=== PATIENT | female | born 1945 | race Two or more races ===

== ENCOUNTER 2017-07-22 18:15 | Inpatient (IN) | payer MEDICARE, BC ==
[~2017-07-22] VITALS: Ht 154.9 cm; Wt 57.6 kg
[2017-07-22 20:00] VITALS: BP 131/64
--- NOTE | 2017-07-22 20:00 | NUR ---
RN NOTES RECEIVED PATIENT FROM [facility] VIA AMBULANCE ON A GURNEY ACCOMPANIED BY 2 EMT WITH FAMILY AT BEDSIDE. NO RESPIRATORY DISTRESS OR SHORTNESS OF BREATH. NOTED WITH PRODUCTIVE COUGH AND CONGESTION. ON 02 @2LPM VIA NASAL CANNULA TOLERATING WELL. ALERT AND ORIENTED. ABLE TO COMMUNICATE NEEDS VERBALLY. SEEN AND EVALUATED BY MD WITH NEW ORDERS NOTED AND MED RECON DONE. WITH IV SHUNT TO RIGHT ARM AND PIV LINE TO LAC. NO COMPLAINT OF PAIN OR DISCOMFORT. VITAL SIGNS WNL. WILL CONTINUE TO MONITOR. KEPT CLEAN AND DRY.
[2017-07-22] MEDS ORDERED: ALEN70TA45 PO (20:32)
[2017-07-22] MEDS ORDERED: MULT1TAB73 PO (20:32)
[2017-07-22] MEDS ORDERED: MAGN400T6 PO (20:32)
[2017-07-22] MEDS ORDERED: TACR1CAP PO (20:32)
[2017-07-22] MEDS ORDERED: PRAV20TA4 PO (20:32)
[2017-07-22] MEDS ORDERED: BIOT300T2 PO (20:32)
[2017-07-22] MEDS ORDERED: ASCO500C16 PO (20:32)
[2017-07-22] MEDS ORDERED: CALC-838 PO (20:32)
[2017-07-22] MEDS ORDERED: MYCO180T3 PO (20:32)
[2017-07-22] MEDS ORDERED: [UNRECOGNIZED DRUG - OTHER] PO (20:32)
[2017-07-22] MEDS ORDERED: PRED5TAB48 PO (20:32)
[2017-07-22] MEDS ORDERED: CINA30TA2 PO (20:32)
[2017-07-22] MEDS ORDERED: ONDANSETRON HCL/PF 4 MG/2 ML VIAL IVP PRN (23:00)
[2017-07-22] MEDS ORDERED: Z GUARD REMEDY 2 OZ OINT TP PRN (23:00)
[2017-07-22] MEDS ORDERED: MAGNESIUM HYDROXIDE 30 ML UDC PO PRN (23:00)
[2017-07-22] MEDS ORDERED: ACETAMINOPHEN 325 MG TABLET PO PRN (23:00)
[2017-07-22] MEDS ORDERED: IPRATROPIUM NEB FS 0.5 MG/2.5 ML AMPUL.NEB NEB PRN (23:00)
[2017-07-22] MEDS ORDERED: VANCOMYCIN 1 GM in IV D5W 250 ML IV SCH (23:00)
[2017-07-22] MEDS ORDERED: ALBUTEROL FS 2.5 MG/0.5 ML VIAL.NEB NEB PRN (23:00)
[2017-07-22] MEDS ORDERED: ZOLPIDEM TARTRATE 5 MG TABLET PO PRN (23:00)
[2017-07-22] MEDS ORDERED: ENOXAPARIN SODIUM 40 MG/0.4 ML DISP.SYRIN SQ SCH (23:00)
[2017-07-22] MEDS ORDERED: methylPREDNISolone SOD SUCC 125 MG/2ML VIAL ONE (23:18)
[2017-07-22] MEDS ORDERED: VANCOMYCIN 1 GM VIAL ONE (23:18)
[2017-07-22] MEDS ORDERED: ENOXAPARIN SODIUM 40 MG/0.4 ML DISP.SYRIN SQ ONE (23:18)
[2017-07-22] MEDS: IV NS 0.9% 1,000 ML IV PRN (23:34)
[2017-07-23] VITALS (7 sets, daily range): BP systolic 117–152; BP diastolic 57–79
[2017-07-23] MEDS: methylPREDNISolone SOD SUCC 125 MG/2ML VIAL IV SCH ×4 (00:06→17:13)
[2017-07-23] MEDS ORDERED: PIPERACILLIN /TAZOBACTAM 4.5 G in IV D5W 50 ML IV SCH (05:00)
[2017-07-23] MEDS ORDERED: methylPREDNISolone SOD SUCC 125 MG/2ML VIAL ONE (05:48)
[2017-07-23] MEDS ORDERED: PIPERACILLIN /TAZOBACTAM 2.25 G VIAL IV ONE (05:55)
--- NOTE | 2017-07-23 06:45 | NUR ---
RN CLOSING NOTES PATIENT IN BED, NO DISTRESS NOTED. NO SIGNIFICANT CHANGE OF CONDITION. VITAL SIGNS WNL. COLLECTED SPECIMEN FOR UA, MRSA SCREENING. WILL ENDORSE TO AM SHIFT FOR CONTINUITY OF CARE
[2017-07-23 06:56] LABS: HEMATOCRIT 37 % (33-45); HEMOGLOBIN 12.5 g/dL (11.5-14.8); LYMPHOCYTES # (AUTO) 0.2 /CMM (0.8-4.8); LYMPHOCYTES % (AUTO) 1.8 % (20.0-44.0); MEAN CORPUSCULAR HEMOGLOBIN 31 PG (26.0-33.0); MEAN CORPUSCULAR HGB CONC 34 g/dl (31.0-36.0); MEAN CORPUSCULAR VOLUME 91 fL (82-100); MONOCYTES # (AUTO) 0.2 /CMM (0.1-1.30); MONOCYTES % (AUTO) 1.6 % (2.0-12.0); NEUTROPHILS # (AUTO) 10.6 /CMM (1.8-8.9); NEUTROPHILS % (AUTO) 96.6 % (43.0-81.0); PLATELET COUNT (AUTO) 93 /CMM (150-450); RDW COEFFICIENT OF VARIATION 15.4 (11.5-15.0); RED BLOOD CELL COUNT(AUTO) 4.05 MIL/uL (4.0-5.2); WHITE BLOOD COUNT (AUTO) 10.9 K/uL (4.3-11.0)
[2017-07-23 07:20] LABS: CALCIUM, SERUM 9.7 mg/dL (8.5-10.1); CREATININE 0.7 mg/dL (0.6-1.3); MAGNESIUM 1.5 mg/dL (1.8-2.4); PHOSPHORUS 3.1 mg/dL (2.5-4.9); POTASSIUM 4.8 mmol/L (3.5-5.1); THYROID STIMULATING HORMONE 0.075 uIU/mL (0.358-3.74)
[2017-07-23] MEDS ORDERED: FEE PK DOSING 1 MIN EA MC ONE (07:29)
--- NOTE | 2017-07-23 08:00 | NUR ---
TELE1/RN AM SHIFT INITIAL NOTES RECEIVED AWAKE SITTING IN BED WITH AT BEDSIDE. A/O X 4, DENIES ANY SYMPTOMS AT THIS TIME. NO ACUTE CHANGE OF CONDITION NOTED AT THIS TIME. ON 2L VIA N/C SATURATING @ 97%, LUNG SOUNDS CLEAR, RESPIRATION EVEN & UNLABORED. ON TELE MONITORING WITH SINUS RHYTHM, HR 88. WITH ON GOING IV INFUSION OF NS @ 75CC/HR, IV SITE PATENT WITH NO S/S OF INFECTION. AV SHUNT ON LEFT ARM (+) THRILL & BRUIT. PT IS COMFORTABLE AT THIS TIME. SCHEDULED AM MEDS TO BE GIVEN. CL WITHIN REACHED, SAFETY MAINTAINED AND ISOLATION OBSERVED. ON GOING MONITORING.
[2017-07-23 08:39] LABS: LYMPHOCYTES % (MANUAL) 2 % (16-48); MONOCYTES % (MANUAL) 1 % (0-11.0); NEUTROPHILS % (MANUAL) 97 (42-76)
[2017-07-23] MEDS ORDERED: URSODIOL 300 MG CAPSULE PO SCH ×2 (09:00)
[2017-07-23] MEDS ORDERED: TACROLIMUS ANHYDROUS 1 MG CAPSULE PO SCH (09:00)
[2017-07-23] MEDS ORDERED: MYCOPHENOLATE SODIUM 180 MG TABLET.DR PO SCH (09:00)
--- NOTE | 2017-07-23 09:30 | NUR ---
TELE1/RN HOME MEDS - PHARMACY ENDORSED PT'S BROUGHT (2) KINDS OF HOME MEDS, MYFORTIC AND PROGRAFT. ENDORSED TO PHARMACY.
[2017-07-23] MEDS: TACROLIMUS ANHYDROUS 0.5 MG CAPSULE PO SCH ×2 (09:37→21:20)
[2017-07-23] MEDS: MYCOPHENOLATE SODIUM 180 MG TABLET.DR PO SCH ×2 (09:38→21:20)
[2017-07-23] MEDS: Magnesium 1GM/D5W 100ML PREMIX 100 ML IV SCH ×4 (10:35→17:13)
[2017-07-23] MEDS: VANCOMYCIN 500 MG in IV D5W 100 ML IV SCH ×2 (10:36→22:37)
--- NOTE | 2017-07-23 11:15 | NUR ---
TELE1/RN ROUNDS - DR. ROWE RELAYED TO DR. ROWE REGARDING ACTIGALL MEDICATION, PER PT'S PT IS NOT TAKING THE MEDICATION AT HOME. MD ORDERED FOR STAT LIVER FUNCTION TEST, DEPENDING ON RESULTS, TO DETERMINE WHETHER TO TAKE MEDICATION OR NOT. WILL RELAY RESULTS OF LIVER FUNCTION TEST TO DR. ROWE SOON IT BECOMES AVAILABLE. MONITORING CONTINUED.
[2017-07-23 11:33] LABS: ALBUMIN 2.3 g/dL (3.4-5.0); BILIRUBIN,DIRECT 0.6 mg/dL (0.0-0.2); BILIRUBIN,TOTAL 1.3 mg/dL (0.2-1.0)
[2017-07-23] MEDS: PIPERACILLIN /TAZOBACTAM 2.25 G in IV D5W 50 ML IV SCH ×2 (12:26→17:13)
[2017-07-23] MEDS ORDERED: TUBERCULIN,PURIF.PROT.DERIV. 5 TU/0.1 ML VIAL ID ONE (13:00)
--- NOTE | 2017-07-23 13:52 | NUR ---
TELE1/RN PPD TEST PPD TEST PERFORMED ON LEFT FOREARM, PT TOLERATED PROCEDURE. TO BE READ IN 48 HOURS.
--- NOTE | 2017-07-23 17:00 | NUR ---
TELE1/RN AFTERNOON ROUNDS NO CHANGE OF CONDITIONS. MONITORING CONTINUED.
--- NOTE | 2017-07-23 19:17 | NUR ---
TELE1/RN AM SHIFT END NOTES ALL NEEDS MET. NO ACUTE CHANGE OF CONDITION NOTED DURING THE SHIFT. PT ENDORSED TO PM NURSE TO CONTINUE CARE. CL WITHIN REACHED, SAFETY MAINTAINED AND ISOLATION OBSERVED.
--- NOTE | 2017-07-23 19:57 | NUR ---
LINOTYPE MECHANIC INITIAL NOTES RECEIVED AWAKE SITTING IN BED A/O X 4, DENIES ANY SYMPTOMS AT THIS TIME. NO ACUTE CHANGE OF CONDITION NOTED AT THIS TIME. ON 2L VIA N/C SATURATING @ 97%, LUNG SOUNDS CLEAR, RESPIRATION EVEN & UNLABORED. S/P TB TEST. ON TELE MONITORING WITH SINUS RHYTHM, HR 90. WITH ON GOING IV INFUSION OF NS @ 75CC/HR, IV SITE PATENT WITH NO S/S OF INFECTION. AV SHUNT ON LEFT ARM (+) THRILL & BRUIT. PT IS COMFORTABLE AT THIS TIME. SCHEDULED PM MEDS TO BE GIVEN. CL WITHIN REACHED, SAFETY MAINTAINED AND ISOLATION OBSERVED. ON GOING MONITORING.
--- NOTE | 2017-07-23 21:04 | NUR ---
Patient lives at home with spouse and son. Prior to admission, he was ambulatory and independent with adl's. He has a shower chair with back, no homehealth reported. Family will provide ride home once discharge. Addendum: 07/23/17 at 2104 by JOE ELIZONDO RN Amended: Links added.
[2017-07-23] MEDS: URSODIOL 300 MG CAPSULE PO SCH (21:20)
[2017-07-23] MEDS: CINACALCET HCL 30 MG TABLET PO SCH (21:25)
[2017-07-23] MEDS: ENOXAPARIN SODIUM 40 MG/0.4 ML DISP.SYRIN SQ SCH (21:48)
[2017-07-23] MEDS ORDERED: PRAVASTATIN SODIUM 20 MG TABLET PO SCH (22:00)
--- NOTE | 2017-07-23 22:20 | NUR ---
RECEIVED CALL FROM JESSENIA PIERCE FAXED POSITIVE BLOOD CX RESULTS.
[2017-07-23] MEDS: IV NS 0.9% 1,000 ML IV PRN (22:42)
[2017-07-24] VITALS (7 sets, daily range): BP systolic 120–144; BP diastolic 67–83
[2017-07-24] MEDS: methylPREDNISolone SOD SUCC 125 MG/2ML VIAL IV SCH ×5 (00:28→23:45)
[2017-07-24] MEDS: PIPERACILLIN /TAZOBACTAM 2.25 G in IV D5W 50 ML IV SCH ×4 (00:28→17:02)
--- NOTE | 2017-07-24 06:00 | NUR ---
MERCURY RECOVERER CLOSING NOTES ALL NEEDS MET. NO ACUTE CHANGE OF CONDITION NOTED DURING THE SHIFT. PT ENDORSED TO AM NURSE TO CONTINUE CARE. CL WITHIN REACHED, SAFETY MAINTAINED AND ISOLATION OBSERVED.
[2017-07-24 06:59] LABS: CALCIUM, SERUM 9.3 mg/dL (8.5-10.1); CREATININE 0.9 mg/dL (0.6-1.3); POTASSIUM 4.4 mmol/L (3.5-5.1)
--- NOTE | 2017-07-24 07:00 | NUR ---
RN NOTES RECEIVED ON BED, A/Ox4, RESPIRATION EVEN AND UNLABORED, NO SOB NOTED , ON 2 L O2 N/C, S/P TB TEST. ON TELE SR , NS @ 75CC/HR RUNNING VIA R AC IV , SITE CDI, AV SHUNT ON LEFT ARM (+) THRILL & BRUIT. CALL LIGHT WITHIN EASY REACH , SR UP x3. BED LOCKED AND IN LOWEST POSITION ,SAFETY MAINTAINED AND ISOLATION OBSERVED. CONTINUE TO MONITOR .
[2017-07-24] MEDS: URSODIOL 300 MG CAPSULE PO SCH ×2 (08:09→20:39)
[2017-07-24] MEDS: MYCOPHENOLATE SODIUM 180 MG TABLET.DR PO SCH ×2 (08:09→20:40)
[2017-07-24] MEDS: TACROLIMUS ANHYDROUS 0.5 MG CAPSULE PO SCH ×2 (08:09→20:40)
[2017-07-24] MEDS: VANCOMYCIN 500 MG in IV D5W 100 ML IV SCH ×2 (11:17→23:00)
--- NOTE | 2017-07-24 12:00 | NUR ---
RN NOTES PT STABLE , SUPPORTIVE FAMILY AT THE BEDSIDE , CONTINUE TO MONITOR
[2017-07-24] MEDS: IV NS 0.9% 1,000 ML IV PRN (17:06)
--- NOTE | 2017-07-24 18:23 | NUR ---
RN NOTES PT SITTING UP , RESPIRATION EVEN AND UNLBORED, R ARM PICC LINE SITE CDI, NO DISTRESS NOTED , CALL LIGHT WITHIN EASY REACH, WILL ENDORSE TO EYEGLASS FRAMES POLISHER NURSE FOR CATHERINE .
--- NOTE | 2017-07-24 19:54 | NUR ---
RN NOTES RECEIVED ON BED, A/Ox4, RESPIRATION EVEN AND UNLABORED, NO SOB NOTED , ON 2 L O2 N/C, S/P TB TEST. ON TELE SR , NS @ 75CC/HR RUNNING VIA R PICC IV , SITE CDI, AV SHUNT ON LEFT ARM (+) THRILL & BRUIT. CALL LIGHT WITHIN EASY REACH , SR UP x3. BED LOCKED AND IN LOWEST POSITION ,SAFETY MAINTAINED AND ISOLATION OBSERVED. CONTINUE TO MONITOR .
[2017-07-24] MEDS: HYDROCODONE/APAP 5/325MG 1 EACH TABLET PO PRN (20:40)
[2017-07-24] MEDS: ENOXAPARIN SODIUM 40 MG/0.4 ML DISP.SYRIN SQ SCH (21:00)
[2017-07-24] MEDS: CINACALCET HCL 30 MG TABLET PO SCH (21:00)
--- NOTE | 2017-07-24 21:02 | NUR ---
LOVENOX 40MG SQ HELD PLT 93L WILL CONT TO MONITOR, RISK AND BENEFIT EXPLAINED.
[2017-07-25] VITALS: BP 144/80
[2017-07-25] MEDS: PIPERACILLIN /TAZOBACTAM 2.25 G in IV D5W 50 ML IV SCH ×4 (00:40→17:10)
[2017-07-25] MEDS: methylPREDNISolone SOD SUCC 125 MG/2ML VIAL IV SCH ×3 (05:19→17:11)
--- NOTE | 2017-07-25 06:02 | NUR ---
HEADLINER INSTALLER CLOSING NOTES ALL NEEDS MET. NO ACUTE CHANGE OF CONDITION NOTED DURING THE SHIFT. PT ENDORSED TO AM NURSE TO CONTINUE CARE. CL WITHIN REACHED, SAFETY MAINTAINED AND ISOLATION OBSERVED. NASAL SWAB DONE, ID CONTACTED, LEFT A MESSAGE
[2017-07-25 06:34] LABS: HEMATOCRIT 34 % (33-45); HEMOGLOBIN 11.4 g/dL (11.5-14.8); LYMPHOCYTES # (AUTO) 0.1 /CMM (0.8-4.8); MEAN CORPUSCULAR HEMOGLOBIN 31 PG (26.0-33.0); MEAN CORPUSCULAR HGB CONC 33 g/dl (31.0-36.0); MEAN CORPUSCULAR VOLUME 92 fL (82-100); MONOCYTES # (AUTO) 0.2 /CMM (0.1-1.30); MONOCYTES % (AUTO) 1.6 % (2.0-12.0); NEUTROPHILS # (AUTO) 11.9 /CMM (1.8-8.9); NEUTROPHILS % (AUTO) 97.4 % (43.0-81.0); PLATELET COUNT (AUTO) 106 /CMM (150-450); RED BLOOD CELL COUNT(AUTO) 3.72 MIL/uL (4.0-5.2); WHITE BLOOD COUNT (AUTO) 12.2 K/uL (4.3-11.0)
[2017-07-25 06:50] LABS: ALBUMIN 1.9 g/dL (3.4-5.0); BILIRUBIN,TOTAL 0.6 mg/dL (0.2-1.0); CALCIUM, SERUM 8.7 mg/dL (8.5-10.1); MAGNESIUM 1.5 mg/dL (1.8-2.4); PHOSPHORUS 3.8 mg/dL (2.5-4.9); POTASSIUM 4.5 mmol/L (3.5-5.1); TOTAL PROTEIN, SERUM 5.1 g/dL (6.4-8.2)
--- NOTE | 2017-07-25 07:00 | NUR ---
RN NOTES RECEIVED PT ON BED, A/Ox4, RESPIRATION EVEN AND UNLABORED, ON 2 L O2 N/C, NS @ 75CC/HR RUNNING VIA R PICC IV , SITE CDI, AV SHUNT ON LEFT ARM (+) THRILL & BRUIT. SR UP x3. CALL LIGHT WITHIN EASY REACH, BED LOCKED AND IN LOWEST POSITION ,SAFETY MAINTAINED AND ISOLATION OBSERVED. CONTINUE TO MONITOR.
[2017-07-25 08:00] VITALS: BP 138/71
[2017-07-25 09:39] LABS: THYROID STIMULATING HORMONE 0.031 uIU/mL (0.358-3.74)
[2017-07-25] MEDS: TACROLIMUS ANHYDROUS 0.5 MG CAPSULE PO SCH ×2 (10:02→21:21)
[2017-07-25] MEDS: URSODIOL 300 MG CAPSULE PO SCH ×2 (10:02→21:21)
[2017-07-25] MEDS: MYCOPHENOLATE SODIUM 180 MG TABLET.DR PO SCH ×2 (10:02→21:20)
[2017-07-25] MEDS: Magnesium 1GM/D5W 100ML PREMIX 100 ML IV SCH ×2 (10:05→12:11)
[2017-07-25] MEDS: IV NS 0.9% 1,000 ML IV PRN (10:07)
[2017-07-25] MEDS: VANCOMYCIN 500 MG in IV D5W 100 ML IV SCH (11:19)
[2017-07-25] MEDS ORDERED: GUAIFENESIN/CODEINE 10 ML UDC PO PRN (11:30)
--- NOTE | 2017-07-25 13:51 | NUR ---
RN NOTES 7mm DIAMETER NOTED AT THE PPD INJECTION SITE ON L UPPER ARM , WITH SLIGHT REDNESS .
[2017-07-25 16:00] VITALS: BP 147/80
--- NOTE | 2017-07-25 18:24 | NUR ---
RN NOTES PT SITTING UP ON A CHAIR EATING DINNER , SUPPORTIVE FAMILY AT THE BEDSIDE, NS AT 75CC/HR RUNNING VIA R ARM PICC LINE , WILL ENDORSE TO FOOD PHOTOGRAPHER NURSE FOR CATHERINE.
[2017-07-25 20:00] VITALS: BP 147/93
--- NOTE | 2017-07-25 20:14 | NUR ---
RN MS INITIAL NOTES RECEIVED PT ON BED, A/Ox4, RESPIRATION EVEN AND UNLABORED, ON 2 L O2 N/C, NS @ 75CC/HR RUNNING VIA R PICC IV , SITE INTACT, AV SHUNT ON LEFT ARM (+) THRILL & BRUIT. SR UP x3. CALL LIGHT WITHIN EASY REACH, BED LOCKED AND IN LOWEST POSITION ,SAFETY MAINTAINED AND ISOLATION OBSERVED. CONTINUE TO MONITOR.
[2017-07-25] MEDS: ENOXAPARIN SODIUM 40 MG/0.4 ML DISP.SYRIN SQ SCH (21:00)
[2017-07-25] MEDS: ATORVASTATIN 10 MG TABLET PO SCH (21:20)
[2017-07-25] MEDS: CINACALCET HCL 30 MG TABLET PO SCH (21:21)
--- NOTE | 2017-07-25 21:37 | NUR ---
LOVENOX 40 MG SQ HELD PLT 106L, RISK EXPLAINED TO PT, WILL ENDORSE TO AM NURSE TO F/U.
[2017-07-26 00:42] VITALS: BP 147/93
[2017-07-26] MEDS: methylPREDNISolone SOD SUCC 125 MG/2ML VIAL IV SCH ×5 (01:28→23:01)
[2017-07-26] MEDS: VANCOMYCIN 500 MG in IV D5W 100 ML IV SCH ×3 (01:28→22:04)
[2017-07-26] MEDS: PIPERACILLIN /TAZOBACTAM 2.25 G in IV D5W 50 ML IV SCH ×2 (01:29→05:11)
[2017-07-26 04:00] VITALS: BP 153/79
[2017-07-26] MEDS: IV NS 0.9% 1,000 ML IV PRN (05:24)
--- NOTE | 2017-07-26 06:25 | NUR ---
FABRIC NORMALIZER CLOSING NOTES ALL NEEDS MET. NO ACUTE CHANGE OF CONDITION NOTED DURING THE SHIFT. PT ENDORSED TO AM NURSE TO CONTINUE CARE. CL WITHIN REACHED, SAFETY MAINTAINED AND ISOLATION OBSERVED. NASAL SWAB DONE, ID CONTACTED, LEFT A MESSAGE
[2017-07-26 06:31] LABS: HEMATOCRIT 35 % (33-45); HEMOGLOBIN 11.6 g/dL (11.5-14.8); LYMPHOCYTES # (AUTO) 0.1 /CMM (0.8-4.8); LYMPHOCYTES % (AUTO) 1.4 % (20.0-44.0); MEAN CORPUSCULAR HEMOGLOBIN 30 PG (26.0-33.0); MEAN CORPUSCULAR HGB CONC 33 g/dl (31.0-36.0); MEAN CORPUSCULAR VOLUME 92 fL (82-100); MONOCYTES # (AUTO) 0.2 /CMM (0.1-1.30); MONOCYTES % (AUTO) 1.9 % (2.0-12.0); NEUTROPHILS # (AUTO) 8.9 /CMM (1.8-8.9); NEUTROPHILS % (AUTO) 96.7 % (43.0-81.0); PLATELET COUNT (AUTO) 89 /CMM (150-450); RDW COEFFICIENT OF VARIATION 14.8 (11.5-15.0); RED BLOOD CELL COUNT(AUTO) 3.84 MIL/uL (4.0-5.2); WHITE BLOOD COUNT (AUTO) 9.2 K/uL (4.3-11.0)
[2017-07-26 06:48] LABS: CALCIUM, SERUM 8.8 mg/dL (8.5-10.1); CREATININE 0.8 mg/dL (0.6-1.3); MAGNESIUM 1.7 mg/dL (1.8-2.4); PHOSPHORUS 3.7 mg/dL (2.5-4.9); POTASSIUM 4.4 mmol/L (3.5-5.1)
--- NOTE | 2017-07-26 07:37 | NUR ---
RN: INITIAL NOTE RECEIVED PT A/OX4. ON DROPLET AND CONTACT PRECAUTIONS FOR POSSIBLE TB. USES DIAPER. ON MS. SKIN INTACT. ON SOFT DIET. NO DISTRESS NOTED. NO SOB NOTED. NO PAIN NOTED. ON 2L NC SATING AT 95%. ON SOFT DIET L FA SHUNT + FOR BRUIT. R ARM PICC LINE. SITE CELAR AND PATENT. DRESSING INTACT. RUNNING NS AT 75ML/HR. RESTING COMFORTABLY IN BED. CALL LIGHT WITHIN REACH.
[2017-07-26 07:43] LABS: BAND % (MANUAL) 1 % (0.0-5.0); LYMPHOCYTES % (MANUAL) 2 % (16-48); MONOCYTES % (MANUAL) 1 % (0-11.0); NEUTROPHILS % (MANUAL) 96 (42-76)
[2017-07-26 08:00] VITALS: BP_SYST 154; BP_SYST 157; BP_DIAS 65; BP_DIAS 80
[2017-07-26] MEDS: MYCOPHENOLATE SODIUM 180 MG TABLET.DR PO SCH ×2 (09:01→20:13)
[2017-07-26] MEDS: TACROLIMUS ANHYDROUS 0.5 MG CAPSULE PO SCH ×2 (09:02→20:12)
[2017-07-26] MEDS: URSODIOL 300 MG CAPSULE PO SCH ×2 (09:02→20:13)
[2017-07-26] MEDS: SIMETHICONE 80 MG TAB.CHEW PO PRN ×2 (12:15→20:13)
[2017-07-26] MEDS: PIPERACILLIN /TAZOBACTAM 3.375 G in IV D5W 50 ML IV SCH ×3 (12:15→23:36)
[2017-07-26] MEDS: Magnesium 1GM/D5W 100ML PREMIX 100 ML IV SCH ×2 (12:45→14:05)
[2017-07-26 13:07] LABS: *TACROLIMUS (FK506) 8.4 ng/mL (2.0-20.0)
[2017-07-26 16:00] VITALS: BP 146/80
--- NOTE | 2017-07-26 18:45 | NUR ---
MS RN: CLOSING NOTE PT TOOK ALL MEDICATIONS ON TIME. NO ADVERSE REACTIONS NOTED. ON DROPLET AND CONTACT PRECAUTIONS DUE TO POSSIBLE TB. A/OX4. NO DISTRESS NOTED. NO SOB NOTED. ON 4L NC SATING AT 100%. STOOL COLLECTED AND SENT FOR C.DIFF PER MD ORDER,. SKIN INTACT. ON SOFT DIET. NO N/V NOTED. R ARM PICC LINE. SL. NO IV FLUIDS RUNNING. DRESSING INTACT. LFA SHUNT + BRUIT. DRESSING INTACT. RESTING COMFORTABLY IN BED. CALL LIGHT WITHIN REACH.
--- NOTE | 2017-07-26 19:00 | NUR ---
MS RN OPENING NOTES: RECEIVED PT AND IS SITTING UP ON CHAIR WITH 3LPM VIA NC AND IS TOLERATING WELL. PT WITH 2 FAMILY MEMBERS AT BEDSIDE. TB PRECAUTIONS WERE MADE. PT COMPLAINING OF GAS AT THIS TIME. WOULD LIKE SOMETHING FOR HER GAS. PT HAS PICC LINE ON R UPPER ARM AND IS PATENT AND INTACT. CURRENTLY S/L. PT ALSO HAS LEFT FOREARM SHUNT NOTED WITH BRUIT NOTED. CALL LIGHT WITHIN PT'S REACH. BED KEPT IN LOW, LOCKED POSITION, AND SIDE RAILS X 2UP. WILL CONTINUE TO MONITOR PT.
[2017-07-26 20:00] VITALS: BP 173/107
--- NOTE | 2017-07-26 20:13 | NUR ---
MS RN NOTES: PT IS COMPLAINING OF GAS AND WAS ADMINISTERED MYLICON 80MG. WILL CONTINUE TO MONITOR PT.
[2017-07-26] MEDS: ENOXAPARIN SODIUM 40 MG/0.4 ML DISP.SYRIN SQ SCH ×2 (21:00→22:59)
--- NOTE | 2017-07-26 21:00 | NUR ---
MS COPE NOTES: LOVENOX WITHHELD D/T PLATELETS BEING 89. CHARGE NURSE AWARE. Addendum: 07/27/17 at 0340 by BRANDI CALLE RN LOVENOX ENDED UP BEING ADMINISTERED AFTER SPEAKING WITH DR. JOON Padilla
[2017-07-26] MEDS: ATORVASTATIN 10 MG TABLET PO SCH (22:00)
[2017-07-26] MEDS: CINACALCET HCL 30 MG TABLET PO SCH (22:00)
[2017-07-26 22:16] VITALS: BP 171/77
--- NOTE | 2017-07-26 22:20 | NUR ---
MS RN NOTES: PT REFUSED LIPITOR AND SENSIPAR AFTER BEING EXPLAINED RISKS AND BENEFITS OF MEDS X3. PT STILL DOES NOT WANT TO TAKE IT.
--- NOTE | 2017-07-26 22:22 | NUR ---
MS RN NOTES: PT SAID SHE FEELS A LOT BETTER AFTER TAKING MYLICON 80MG EARLIER. PT NOT COMPLAINING OF ANY PAIN. NO S/S OF DISTRESS NOTED. BP 171/77 HR 80. WILL CONTINUE TO MONITOR PT.
--- NOTE | 2017-07-26 22:45 | NUR ---
MS RN NOTES: SPOKE TO DR. DUPREE AND INFORMED HIM OF BP 171/77 HR 80. NO ORDERS WERE GIVEN IN REGARDS TO BP. ALSO INFORMED HIM OF HER PLATELETS BEING 89 AND TO STILL ADMINISTER THE LOVENOX 40MG.
[2017-07-27 04:00] VITALS: BP 158/76
[2017-07-27] MEDS: methylPREDNISolone SOD SUCC 125 MG/2ML VIAL IV SCH ×4 (05:38→23:35)
[2017-07-27] MEDS: PIPERACILLIN /TAZOBACTAM 3.375 G in IV D5W 50 ML IV SCH ×4 (05:38→23:35)
--- NOTE | 2017-07-27 06:54 | NUR ---
MS RN CLOSING NOTES: ALL NEEDS WERE ATTENDED AND ANTICIPATED FOR. PT IS RESTING IN BED COMFORTABLY. PT IS AWAKE AND IS A/OX4. TB PRECAUTIONS WERE MADE. PT HAS PICC LINE ON R UPPER ARM AND IS PATENT AND INTACT. CURRENTLY S/L. PT ALSO HAS LEFT FOREARM SHUNT NOTED WITH BRUIT. CALL LIGHT WITHIN PT'S REACH. PT ON 3LPM VIA NC AND IS TOLERATING WELL. BED KEPT IN LOW, LOCKED POSITION, AND SIDE RAILS X 2UP. WILL ENDORSE TO AM NURSE FOR CATHERINE.
--- NOTE | 2017-07-27 07:24 | NUR ---
RN OPENING NOTES PATIENT RESTING COMFORTABLY IN BED, AWAKE, RESPONSIVE, A/OX4. TB PRECAUTIONS WERE MADE. PATIENT HAS PICC LINE ON R UPPER ARM AND IS PATENT AND INTACT. PATIENT ALSO HAS LEFT FOREARM SHUNT NOTED WITH BRUIT. KEPT PATIENT SAFE AND COMFORTABLE. ON 3LPM VIA NC AND IS TOLERATING WELL. BED IN LOW, LOCKED POSITION, HOB ELEVATED, SIDE RAILS X 2UP, CALL LIGHT WITHIN REACH. WILL CONTINUE TO MONITOR ACCORDINGLY.
[2017-07-27 07:25] LABS: CALCIUM, SERUM 9.2 mg/dL (8.5-10.1); CREATININE 0.9 mg/dL (0.6-1.3); MAGNESIUM 1.9 mg/dL (1.8-2.4); PHOSPHORUS 4.1 mg/dL (2.5-4.9); POTASSIUM 4.4 mmol/L (3.5-5.1)
[2017-07-27 07:27] LABS: HEMATOCRIT 37 % (33-45); HEMOGLOBIN 12.2 g/dL (11.5-14.8); LYMPHOCYTES # (AUTO) 0.1 /CMM (0.8-4.8); LYMPHOCYTES % (AUTO) 1.4 % (20.0-44.0); MEAN CORPUSCULAR HEMOGLOBIN 30 PG (26.0-33.0); MEAN CORPUSCULAR HGB CONC 33 g/dl (31.0-36.0); MEAN CORPUSCULAR VOLUME 92 fL (82-100); MONOCYTES # (AUTO) 0.1 /CMM (0.1-1.30); MONOCYTES % (AUTO) 1.9 % (2.0-12.0); NEUTROPHILS # (AUTO) 6.9 /CMM (1.8-8.9); NEUTROPHILS % (AUTO) 96.7 % (43.0-81.0); PLATELET COUNT (AUTO) 91 /CMM (150-450); RED BLOOD CELL COUNT(AUTO) 4.02 MIL/uL (4.0-5.2); WHITE BLOOD COUNT (AUTO) 7.2 K/uL (4.3-11.0)
[2017-07-27 08:00] VITALS: BP_SYST 155; BP_SYST 166; BP_DIAS 77; BP_DIAS 78
[2017-07-27] MEDS: URSODIOL 300 MG CAPSULE PO SCH ×2 (08:25→21:07)
[2017-07-27] MEDS: MYCOPHENOLATE SODIUM 180 MG TABLET.DR PO SCH ×2 (08:26→21:07)
[2017-07-27] MEDS: TACROLIMUS ANHYDROUS 0.5 MG CAPSULE PO SCH ×2 (08:26→21:07)
[2017-07-27] MEDS: VANCOMYCIN 500 MG in IV D5W 100 ML IV SCH ×2 (12:09→23:35)
[2017-07-27] MEDS: PROSOURCE / PROSTAT (PYXIS) 30 ML UDC PO SCH (13:36)
[2017-07-27] MEDS: SIMETHICONE 80 MG TAB.CHEW PO PRN (14:29)
[2017-07-27 16:00] VITALS: BP_SYST 150; BP_SYST 175; BP_DIAS 83; BP_DIAS 86
--- NOTE | 2017-07-27 19:30 | NUR ---
RN CLOSING NOTES PATIENT IN BED RESTING, ON BEDSIDE. NO ACUTE DISTRESS, NO SOB NOTED. NO SIGNIFICANT CHANGE IN PATIENT'S CONDITION. ALL NEEDS ATTENDED AND PROVIDED. KEPT PATIENT SAFE AND COMFORTABLE. BED IN LOW POSITION, LOCKED, SIDERAILS UPX2, HOB ELEVATED, CALL LIGHT IN REACH. ENDORSED TO NIGHT RN FOR CATHERINE.
[2017-07-27 20:00] VITALS: BP 167/89
[2017-07-27] MEDS: ENOXAPARIN SODIUM 40 MG/0.4 ML DISP.SYRIN SQ SCH (21:00)
[2017-07-27] MEDS: ATORVASTATIN 10 MG TABLET PO SCH (21:07)
[2017-07-27] MEDS: CINACALCET HCL 30 MG TABLET PO SCH (21:11)
[2017-07-28 04:00] VITALS: BP 155/72
[2017-07-28] MEDS: PIPERACILLIN /TAZOBACTAM 3.375 G in IV D5W 50 ML IV SCH ×4 (05:50→17:30)
[2017-07-28] MEDS: methylPREDNISolone SOD SUCC 125 MG/2ML VIAL IV SCH ×4 (05:50→17:29)
--- NOTE | 2017-07-28 05:58 | NUR ---
RN NOTES COMPUTER SHUT OFF WHILE PASSING MEDS. 0600 MEDS MANUALLY SCANNED.
--- NOTE | 2017-07-28 07:22 | NUR ---
RN NOTES RECEIVED PT IN STABLE CONDITION A&0X3, ON 2L NC SATING WELL NO SOB OR DISTRESS NOTED. ADELA PICC LINE INTACT NO IVF. NO COMPLAINTS OF PAIN AT THS TIME. BED LOCKED AND IN LOWEST POSITION, CALL LIGHT WITHIN REACH, SIDE RAILS UX3, WILL CONT TO RAFFI.
[2017-07-28 07:28] LABS: CALCIUM, SERUM 8.7 mg/dL (8.5-10.1); MAGNESIUM 1.7 mg/dL (1.8-2.4); PHOSPHORUS 4.2 mg/dL (2.5-4.9); POTASSIUM 4.5 mmol/L (3.5-5.1)
[2017-07-28 07:47] LABS: EOSINOPHILS % (AUTO) 0.4 % (0.0-6.0); HEMATOCRIT 35 % (33-45); HEMOGLOBIN 11.8 g/dL (11.5-14.8); LYMPHOCYTES # (AUTO) 0.1 /CMM (0.8-4.8); MEAN CORPUSCULAR HEMOGLOBIN 31 PG (26.0-33.0); MEAN CORPUSCULAR HGB CONC 34 g/dl (31.0-36.0); MEAN CORPUSCULAR VOLUME 91 fL (82-100); MONOCYTES # (AUTO) 0.1 /CMM (0.1-1.30); MONOCYTES % (AUTO) 1.9 % (2.0-12.0); NEUTROPHILS # (AUTO) 6.5 /CMM (1.8-8.9); NEUTROPHILS % (AUTO) 95.7 % (43.0-81.0); RDW COEFFICIENT OF VARIATION 15.2 (11.5-15.0); RED BLOOD CELL COUNT(AUTO) 3.83 MIL/uL (4.0-5.2); WHITE BLOOD COUNT (AUTO) 6.8 K/uL (4.3-11.0)
[2017-07-28 08:00] VITALS: BP 160/79
[2017-07-28 08:08] LABS: PLATELET COUNT (AUTO) 88 /CMM (150-450)
[2017-07-28] MEDS: PROSOURCE / PROSTAT (PYXIS) 30 ML UDC PO SCH (08:50)
[2017-07-28] MEDS: MYCOPHENOLATE SODIUM 180 MG TABLET.DR PO SCH ×2 (08:50→21:15)
[2017-07-28] MEDS: TACROLIMUS ANHYDROUS 0.5 MG CAPSULE PO SCH ×2 (08:50→21:14)
[2017-07-28] MEDS: URSODIOL 300 MG CAPSULE PO SCH ×2 (08:50→21:15)
[2017-07-28] MEDS: Magnesium 1GM/D5W 100ML PREMIX 100 ML IV SCH ×2 (11:15→12:40)
[2017-07-28 13:30] VITALS: BP 160/79
[2017-07-28] MEDS: VANCOMYCIN 500 MG in IV D5W 100 ML IV SCH (13:30)
--- NOTE | 2017-07-28 13:30 | NUR ---
RN NOTES FULL FASHIONED GARMENT KNITTER CLEANING PT NOTICED BRIGHT RED RECTAL BLEEDING. PER PT AND PT HAS HEMORRHOIDS AND THIS HAS HAPPENED IN THE PAST. PT VITALS STABLE BP 160/79. PARTS CLASSIFIER LENNOX HICKEY INFORMED, GI CONSULT WILL BE DONE. WILL CONT TO RAFFI.
[2017-07-28 16:00] VITALS: BP 171/83
[2017-07-28 17:13] LABS: BASOPHILS # (AUTO) 0.1 /CMM (0.0-0.2); BASOPHILS % (AUTO) 0.7 % (0.0-2.0); HEMATOCRIT 37 % (33-45); HEMOGLOBIN 12.4 g/dL (11.5-14.8); LYMPHOCYTES # (AUTO) 0.2 /CMM (0.8-4.8); LYMPHOCYTES % (AUTO) 1.5 % (20.0-44.0); MEAN CORPUSCULAR HEMOGLOBIN 31 PG (26.0-33.0); MEAN CORPUSCULAR HGB CONC 34 g/dl (31.0-36.0); MEAN CORPUSCULAR VOLUME 90 fL (82-100); MONOCYTES # (AUTO) 0.4 /CMM (0.1-1.30); MONOCYTES % (AUTO) 3.6 % (2.0-12.0); NEUTROPHILS # (AUTO) 11.2 /CMM (1.8-8.9); NEUTROPHILS % (AUTO) 94.2 % (43.0-81.0); PLATELET COUNT (AUTO) 108 /CMM (150-450); RDW COEFFICIENT OF VARIATION 15.2 (11.5-15.0); RED BLOOD CELL COUNT(AUTO) 4.09 MIL/uL (4.0-5.2); WHITE BLOOD COUNT (AUTO) 11.9 K/uL (4.3-11.0)
--- NOTE | 2017-07-28 17:47 | NUR ---
RN NOTES COLONOSCOPY ORDERED BY CHUCKY GARIBAY, PT REFUSES TO HAVE ANOTHER COLONOSCOPY, STATES SHE RECENTLY HAD ONE AND IT WAS NORMAL. PT WANTS TO GO HOME TOMORROW.
--- NOTE | 2017-07-28 18:35 | NUR ---
RN NOTES PT REMAINED IN STABLE CONDITION, NO SIGNIFICANT CHANGES. PT H&H REDRAW 12.4 AND 37. PT HAD ONE MORE EPISODE OF RECTAL BLEED. PER COPIER OPERATOR CONTINUE TO RAFFI. ALL NEEDS MET. NO COMPLAINTS OF PAIN AT THIS TIME. COPIER OPERATOR [place] NOTIFIED THAT PT IS REFUSING COLONOSCOPY. WILL ENDORSE TO ONCOMING SHIFT.
[2017-07-28 20:00] VITALS: BP 160/75
[2017-07-28] MEDS: ENOXAPARIN SODIUM 40 MG/0.4 ML DISP.SYRIN SQ SCH (21:00)
[2017-07-28] MEDS: CINACALCET HCL 30 MG TABLET PO SCH (21:14)
[2017-07-28] MEDS: ATORVASTATIN 10 MG TABLET PO SCH (21:15)
--- NOTE | 2017-07-28 22:00 | NUR ---
RN NOTES, LOVENOX NOT ADMINISTERED, PATIENT WITH SOME EPISODES OF RECTAL BLEEDING YESTERDAY PER ENDORSEMENT , SMALL AMOUNT OF BLEEDING NOTED DURING THE SHIFT, PATIENT ALERT AND ORIENTED, BREATHING EVEN AND UNLABORED NO SOB OR ACUTE DISTRESS NOTED AT THIS TIME, WILL CONTINUE TO MONITOR CLOSELY.
[2017-07-28] MEDS: HYDROCODONE/APAP 5/325MG 1 EACH TABLET PO PRN (22:18)
[2017-07-28] MEDS ORDERED: methylPREDNISolone SOD SUCC 40 MG/ML VIAL ONE (23:37)
[2017-07-29] MEDS: PIPERACILLIN /TAZOBACTAM 3.375 G in IV D5W 50 ML IV SCH ×4 (00:11→18:19)
[2017-07-29] MEDS: methylPREDNISolone SOD SUCC 125 MG/2ML VIAL IV SCH ×4 (00:11→18:19)
[2017-07-29 04:00] VITALS: BP 148/72
[2017-07-29] MEDS ORDERED: methylPREDNISolone SOD SUCC 40 MG/ML VIAL ONE (06:30)
[2017-07-29 06:33] LABS: CALCIUM, SERUM 8.3 mg/dL (8.5-10.1); CREATININE 1.2 mg/dL (0.6-1.3); MAGNESIUM 1.9 mg/dL (1.8-2.4); POTASSIUM 4.6 mmol/L (3.5-5.1)
[2017-07-29] MEDS: MAG HYDROX/AL HYDROX/SIMETH 30 ML UDC PO PRN (06:33)
[2017-07-29] MEDS: VANCOMYCIN 500 MG in IV D5W 100 ML IV SCH (07:21)
--- NOTE | 2017-07-29 08:08 | NUR ---
MS/RN NOTES RECEIVED PATIENT RESTING IN BED IN NO APPARENT DISTRESS, BREATHING EVEN AND UNLABORED, ON 02 VIA NC AT 2LPM ABOVE 91%. PATIENT DENIES ANY PAIN OR DISCOMFORT AT THIS TIME. RIGHT UPPER ARM PICC LINE AND LEFT UA AV SHUNT, NO DIALYSIS. PATIENT APPEARS STABLE AT THIS TIME, WILL CONTINUE TO MONITOR.
[2017-07-29 08:10] LABS: IMMUNOGLOBULIN A, SERUM 110 mg/dL (87-352); IMMUNOGLOBULIN G, SERUM 773 mg/dL (700-1600); IMMUNOGLOBULIN M, SERUM 44 mg/dL (26-217)
[2017-07-29] MEDS: PROSOURCE / PROSTAT (PYXIS) 30 ML UDC PO SCH (09:00)
[2017-07-29] MEDS: MYCOPHENOLATE SODIUM 180 MG TABLET.DR PO SCH ×2 (09:46→21:19)
[2017-07-29] MEDS: URSODIOL 300 MG CAPSULE PO SCH ×2 (09:46→21:19)
[2017-07-29] MEDS: TACROLIMUS ANHYDROUS 0.5 MG CAPSULE PO SCH ×2 (09:47→21:19)
--- NOTE | 2017-07-29 12:36 | NUR ---
MS/RN NOTES PATIENT RESTING IN BED COMFORTABLY, NO S/S OF DISTRESS OR DISCOMFORT NOTED. MORNING MEDICATIONS GIVEN, IV ANTIBIOTIC INFUSING. SEEN BY CONTOUR GRINDER PELEG. WILL CONTINUE TO MONITOR
[2017-07-29 16:12] LABS: *HIV-1 RNA BY PCR <20 copies/mL (.)
[2017-07-29 18:07] VITALS: BP 150/70
--- NOTE | 2017-07-29 19:15 | NUR ---
MS/RN NOTES RECEIVED PT. LYING IN BED, AWAKE, ALERT AND ORIENTED X4. BREATHING EVEN AND UNLABORED ON 2LPM O2 VIA NC. NO SOB, RESPIRATORY DISTRESS OR COMPLAINTS OF PAIN NOTED AT THIS TIME. PT. WITH RIGHT UPPER ARM PICC LINE PRESENT, PATENT AND INTACT. PT. WITH LEFT UPPER EXTREMITY AV SHUNT PRESENT AND INTACT. PT. WITH FAMILY MEMBER PRESENT AT BEDSIDE. BED LOCKED AND IN LOWEST POSITION, SIDE RAILS UP X2, BED ALARM ON, CALL LIGHT WITHIN REACH, WILL CONTINUE TO MONITOR.
--- NOTE | 2017-07-29 19:38 | NUR ---
MS/RN NOTES PATIENT RESTING IN BED COMFORTABLY, ALL DUE MEDICATIONS GIVEN, ALL NEEDS MET AND ATTENDED. PATIENT STABLE, VITALS WITHIN NORMAL LIMITS. NO SIGNIFICANT CHANGES NOTED. SAFETY MEASURES RENDERED, CALL LIGHT PLACED WITHIN REACH. WILL ENDORSE CARE TO MUD TEMPERER FOR CATHERINE.
[2017-07-29 20:00] VITALS: BP 151/98
[2017-07-29] MEDS: ENOXAPARIN SODIUM 40 MG/0.4 ML DISP.SYRIN SQ SCH (21:00)
[2017-07-29] MEDS: CINACALCET HCL 30 MG TABLET PO SCH (21:19)
[2017-07-29] MEDS: ATORVASTATIN 10 MG TABLET PO SCH (21:19)
--- NOTE | 2017-07-29 21:20 | NUR ---
MS/RN NOTES PT. 2100 LOVENOX HELD SMALL AMOUNT OF RECTAL BLEEDING NOTED UPON DIAPER CHANGE. WILL CONTINUE TO MONITOR FOR BLEEDING. WILL CONTINUE TO MONITOR.
[2017-07-30] MEDS: methylPREDNISolone SOD SUCC 125 MG/2ML VIAL IV SCH ×3 (00:34→12:00)
[2017-07-30] MEDS: PIPERACILLIN /TAZOBACTAM 3.375 G in IV D5W 50 ML IV SCH ×3 (00:34→11:58)
[2017-07-30] MEDS: VANCOMYCIN 500 MG in IV D5W 100 ML IV SCH (01:59)
[2017-07-30 04:00] VITALS: BP 140/61
[2017-07-30] MEDS: MAG HYDROX/AL HYDROX/SIMETH 30 ML UDC PO PRN (05:58)
--- NOTE | 2017-07-30 06:57 | NUR ---
MS/RN NOTES PT. IS LYING IN BED RESTING. BREATHING EVEN AND UNLABORED ON 2LPM O2 VIA NC. NO SOB, RESPIRATORY DISTRESS OR COMPLAINTS OF PAIN NOTED AT THIS TIME. PT. WITH RIGHT UPPER ARM PICC LINE PRESENT, PATENT AND INTACT. PT. WITH LEFT UPPER EXTREMITY AV SHUNT PRESENT AND INTACT. ALL PT. NEEDS MET. ALL DUE MEDICATIONS GIVEN. BED LOCKED AND IN LOWEST POSITION, SIDE RAILS UP X2, BED ALARM ON, CALL LIGHT WITHIN REACH, WILL ENDORSE TO DAYSHIFT NURSE FOR CONTINUITY OF CARE.
[2017-07-30 07:02] LABS: HEMATOCRIT 34 % (33-45); HEMOGLOBIN 11.4 g/dL (11.5-14.8); LYMPHOCYTES # (AUTO) 0.1 /CMM (0.8-4.8); LYMPHOCYTES % (AUTO) 1.3 % (20.0-44.0); MEAN CORPUSCULAR HEMOGLOBIN 31 PG (26.0-33.0); MEAN CORPUSCULAR HGB CONC 34 g/dl (31.0-36.0); MEAN CORPUSCULAR VOLUME 91 fL (82-100); MONOCYTES # (AUTO) 0.1 /CMM (0.1-1.30); MONOCYTES % (AUTO) 0.9 % (2.0-12.0); NEUTROPHILS # (AUTO) 7.7 /CMM (1.8-8.9); NEUTROPHILS % (AUTO) 97.8 % (43.0-81.0); PLATELET COUNT (AUTO) 80 /CMM (150-450); RED BLOOD CELL COUNT(AUTO) 3.69 MIL/uL (4.0-5.2); WHITE BLOOD COUNT (AUTO) 7.9 K/uL (4.3-11.0)
[2017-07-30 07:14] LABS: CALCIUM, SERUM 8.4 mg/dL (8.5-10.1); CREATININE 1.1 mg/dL (0.6-1.3); MAGNESIUM 1.8 mg/dL (1.8-2.4); PHOSPHORUS 3.9 mg/dL (2.5-4.9); POTASSIUM 4.5 mmol/L (3.5-5.1)
--- NOTE | 2017-07-30 07:49 | NUR ---
RN NOTES PATIENT ASLEEP BUT EASILY AROUSABLE, NO RESPIRATORY DISTRESS NOTED, DENIES PAIN AT THIS TIME, NEEDS ATTENDED, KEPT PATIENT COMFORTABLE, CALL LIGHT WITHIN REACH, WILL CONTINUE TO MONITOR.
[2017-07-30 08:00] VITALS: BP 132/62
[2017-07-30 08:09] LABS: *SPE ALBUMIN 2.2 g/dL (2.9-4.4); *SPE ALPHA-1-GLOBULIN 0.3 g/dL (0.0-0.4); *SPE ALPHA-2-GLOBULIN 0.6 g/dL (0.4-1.0); *SPE BETA GLOBULIN 0.7 g/dL (0.7-1.3); *SPE GLOBULIN, TOTAL 2.2 g/dL (2.2-3.9); *SPE M-SPIKE Not Observed g/dL (Not Observed); *SPEGAMMA GLOBULIN 0.7 g/dL (0.4-1.8)
[2017-07-30] MEDS: MYCOPHENOLATE SODIUM 180 MG TABLET.DR PO SCH (09:19)
[2017-07-30] MEDS: TACROLIMUS ANHYDROUS 0.5 MG CAPSULE PO SCH (09:19)
[2017-07-30] MEDS: URSODIOL 300 MG CAPSULE PO SCH (09:19)
[2017-07-30] MEDS: PROSOURCE / PROSTAT (PYXIS) 30 ML UDC PO SCH (09:20)
[2017-07-30] MEDS ORDERED: PRED20TA PO (12:19)
[2017-07-30] MEDS ORDERED: PRED20TA GT (12:19)
[2017-07-30] MEDS ORDERED: PRED5TAB48 PO (12:19)
[2017-07-30] MEDS: SIMETHICONE 80 MG TAB.CHEW PO PRN (12:56)
--- NOTE | 2017-07-30 15:30 | NUR ---
RN NOTES PATIENT ALERT AND ORIENTED X3, AT BEDSIDE, BOTH RECEIVED DISCHARGE INSTRUCTIONS AND VERBALIZED UNDERSTANDING. SIGNED DISCHARGE PAPERWORKS, SKIN ASSESSMENT DONE, SKIN DRY AND INTACT, ADELA PICC LINE WILL BE REMOVED PRIOR TO PATIENT LEAVING. BELONGINGS RECONCILED AND COMPLETE. REPORT GIVEN TO RN AT SNF AT [facility]. ALL NEEDS ATTENDED. WAITING FOR TRANSPORTATION.
[2017-07-30 15:51] VITALS: BP 160/75
[2017-07-30] MEDS ORDERED: hydrALAZINE HCL 10 MG TABLET PO ONE (16:00)
--- NOTE | 2017-07-30 16:00 | NUR ---
RN NOTES PATIENT'S BP IS 160/69 HR 90, EMT REFUSING TO TAKE PATIENT TO SNF, CALLED LENNOX HICKEY CRNP, RECEIVED ORDER FOR HYDRALAZINE. ORDER NOTED AND CARRIED OUT. PATIENT IS ASYMPTOMATIC, NO DISTRESS NOTED.
[2017-07-30] MEDS ORDERED: SIMETHICONE 80 MG TAB.CHEW PO SCH (17:00)
[2017-07-30] MEDS ORDERED: HYDROCORTISONE ACETATE 25 MG/SUPP.RECT SUPP.RECT RC SCH (17:00)
--- NOTE | 2017-07-30 17:27 | NUR ---
RETAIL CLIENT SOLUTIONS ANALYST PATIENT LEFT FOR [facility], BP IMPROVED 150/60. PATIENT IS IN NO DISTRESS. ADELA PICC REMOVED NO BLEEDING NOTED. SKIN CARE PROVIDED. LEFT THE FACILITY ACCOMPANIED BY 2 SCRAP WHEELER VIA AMBULANCE.
[2017-08-01 10:11] LABS: *TACROLIMUS (FK506) 6.8 ng/mL (2.0-20.0)
== END 2017-07-30 17:19 | DRG 177 ==
LOC: TELE1 19:42 → MEDSG1 07-24 12:55
DX: J15.6 Pneumonia due to other Gram-negative bacteria (principal); N18.6 End stage renal disease; D84.9 Immunodeficiency, unspecified; D69.6 Thrombocytopenia, unspecified; I12.0 Hypertensive chronic kidney disease with stage 5 chronic kidney disease or end stage renal disease; E83.42 Hypomagnesemia; Z94.0 Kidney transplant status; K62.5 Hemorrhage of anus and rectum; B18.1 Chronic viral hepatitis B without delta-agent; M81.0 Age-related osteoporosis without current pathological fracture; R91.8 Other nonspecific abnormal finding of lung field; K64.8 Other hemorrhoids; E78.5 Hyperlipidemia, unspecified; E05.90 Thyrotoxicosis, unspecified without thyrotoxic crisis or storm; D63.8 Anemia in other chronic diseases classified elsewhere; I77.0 Arteriovenous fistula, acquired; Z79.899 Other long term (current) drug therapy; R59.0 Localized enlarged lymph nodes
CPT/HCPCS: 36415; 71010-TC; 76700-TC; 80048-TC; 80053-TC; 80061-TC; 80076-TC; 80197; 80202-TC; 82728-TC; 82746; 82784; 82977-TC; 83540-TC; 83605-TC; 83735-TC; 84100-TC; 84155; 84165; 84439-TC; 84443-TC; 85025-TC; 86334; 86580-TC; 86706; 86803; 87040-TC; 87070-TC; 87086-TC; 87116; 87206; 87340; 87400; 87536; 87899; 97116-TC; 97530-TC; C1751; J1650; J2543; J2920; J2930; J3370; J3475; J7030; J7060; J7507; J7518; Z7610

== ENCOUNTER 2017-09-07 19:12 | Inpatient (IN) | payer MEDICARE, BC ==
[~2017-09-07] VITALS: Ht 154.9 cm; Wt 56.0 kg
[~2017-09-07 19:12] MED LIST: ALEN70TA45 PO; ASCO500C16 PO; BIOT300T2 PO; CALC-838 PO; CINA30TA2 PO; MAGN400T6 PO; MULT1TAB73 PO; MYCO180T3 PO; PRAV20TA4 PO; PRED20TA GT; PRED20TA PO; PRED5TAB48 PO; TACR1CAP PO; [UNRECOGNIZED DRUG - OTHER] PO
[2017-09-07 20:06] LABS: BASOPHILS # (AUTO) 0.4 /CMM (0.0-0.2); BASOPHILS % (AUTO) 2.2 % (0.0-2.0); EOSINOPHILS % (AUTO) 0.1 % (0.0-6.0); HEMATOCRIT 35 % (33-45); HEMOGLOBIN 11.9 g/dL (11.5-14.8); LYMPHOCYTES # (AUTO) 0.3 /CMM (0.8-4.8); LYMPHOCYTES % (AUTO) 1.8 % (20.0-44.0); MEAN CORPUSCULAR HEMOGLOBIN 31 PG (26.0-33.0); MEAN CORPUSCULAR HGB CONC 35 g/dl (31.0-36.0); MEAN CORPUSCULAR VOLUME 89 fL (82-100); MONOCYTES # (AUTO) 0.3 /CMM (0.1-1.30); NEUTROPHILS # (AUTO) 15.4 /CMM (1.8-8.9); NEUTROPHILS % (AUTO) 93.9 % (43.0-81.0); PLATELET COUNT (AUTO) 99 /CMM (150-450); RDW COEFFICIENT OF VARIATION 17.3 (11.5-15.0); RED BLOOD CELL COUNT(AUTO) 3.91 MIL/uL (4.0-5.2); WHITE BLOOD COUNT (AUTO) 16.4 K/uL (4.3-11.0)
[2017-09-07 20:21] LABS: INR 1.44 (0.85-1.15)
[2017-09-07 20:25] LABS: TROPONIN I 0.039 ng/mL (0.00-0.056)
--- NOTE | 2017-09-07 21:02 | NUR ---
RADHA SORENSON FROM [facility] FOR LOWER EXTREMITY EDEMA. VSS. SEEN BY FOR SUSY. SAFETY AND COMFORT MEASURES PROVIDED. WILL MONITOR.
[2017-09-07 21:10] LABS: MONOCYTES % (MANUAL) 4 % (0-11.0); NEUTROPHILS % (MANUAL) 96 (42-76)
[2017-09-07 21:27] LABS: ALBUMIN 1.8 g/dL (3.4-5.0); BILIRUBIN,DIRECT 0.7 mg/dL (0.0-0.2); CALCIUM, SERUM 8.9 mg/dL (8.5-10.1); CREATININE 1.7 mg/dL (0.6-1.3); POTASSIUM 4.4 mmol/L (3.5-5.1); TOTAL PROTEIN, SERUM 4.5 g/dL (6.4-8.2)
--- NOTE | 2017-09-07 21:49 | NUR ---
PT REFUSES IV INSERTION AT THIS TIME. SON AT BS.
[2017-09-07] MEDS ORDERED: IV NS 0.9% 1,000 ML IV PRN (21:54)
[2017-09-07] MEDS: CINACALCET HCL 30 MG TABLET PO SCH (22:00)
[2017-09-07] MEDS ORDERED: BIOTIN 500 MCG PO SCH (22:00)
[2017-09-07] MEDS ORDERED: MYCOPHENOLATE SODIUM 180 MG TABLET.DR PO SCH (22:00)
[2017-09-07] MEDS ORDERED: MAGNESIUM OXIDE 400 MG TABLET PO ONE (22:00)
[2017-09-07] MEDS ORDERED: Z GUARD REMEDY 2 OZ OINT TP PRN (22:00)
[2017-09-07] MEDS ORDERED: ONDANSETRON HCL/PF 4 MG/2 ML VIAL IVP PRN (22:00)
[2017-09-07] MEDS ORDERED: IV NS 0.9% 500 ML BAG IV ONE (22:00)
[2017-09-07] MEDS ORDERED: ACETAMINOPHEN 325 MG TABLET PO PRN (22:00)
[2017-09-07] MEDS ORDERED: ZOLPIDEM TARTRATE 5 MG TABLET PO PRN (22:00)
[2017-09-07] MEDS ORDERED: MAGNESIUM HYDROXIDE 30 ML UDC PO PRN (22:00)
--- NOTE | 2017-09-07 22:21 | NUR ---
REPORT GIVEN TO NOEL COPE FOR TELE.
--- NOTE | 2017-09-07 22:22 | NUR ---
SPOKE TO FAMILY - AND SON, AND PT REFUSES IV INSERTION AND REQUESTS PICC LINE INSTEAD.
[2017-09-07 22:30] VITALS: BP 107/73
[2017-09-07] MEDS ORDERED: TACROLIMUS ANHYDROUS 1 MG CAPSULE PO ONE (22:30)
[2017-09-07] MEDS ORDERED: ASCORBIC ACID 500 MG TABLET PO ONE (22:30)
[2017-09-07] MEDS ORDERED: MULTIVITAMINS,THERAGRAN 1 UDTAB TABLET PO ONE (22:30)
--- NOTE | 2017-09-07 22:30 | NUR ---
RN OPEN NOTES RECEIVED PATIENT FROM ER VIA [facility] WITH FAMILY AT BEDSIDE. A/O X4. NO SIGNS OF DISTRESS OR DISCOMFORT. BREATHING EVEN AND UNLABORED. ON 2LPM O2 VIA NC. ATTACHED TELE MONITORING WITH SR 100 NOTED. PATIENT REFUSING IV ACCESS, STATES SHE WANTS PICC LINE INSTEAD. MADE AWARE. ORIENTED PATIENT TO UNIT AND ROOM. BED IN LOW LOCKED POSITION WITH SIDE RAILS X2. CALL LIGHT WITHIN REACH. WILL CONTINUE TO MONITOR.
--- NOTE | 2017-09-07 23:00 | NUR ---
RN NOTES PATIENT REFUSED ORDERED 2200 AND 2230 MEDICATIONS. PER PATIENT AND FAMILY PATIENT TOOK HER EVENING MEDICATIONS AT 2030 WHILE WAITING IN ER. MD MADE AWARE. WILL CONTINUE TO MONITOR.
[2017-09-07] MEDS ORDERED: predniSONE 10 MG TABLET PO ONE (23:30)
[2017-09-07] MEDS ORDERED: MYCOPHENOLATE SODIUM 180 MG TABLET.DR PO ONE (23:30)
[2017-09-08 04:00] VITALS: BP 105/58
--- NOTE | 2017-09-08 06:44 | NUR ---
RN CLOSING NOTES PATIENT RESTING IN BED, EASILY AROUSABLE. A/O X4. NO SIGNS OF DISTRESS OR DISCOMFORT. BREATHING EVEN AND UNLABORED. ON 2LPM O2 VIA NC. ON TELE MONITORING WITH SR 93 NOTED. PATIENT STILL REFUSING IV ACCESS, WILL HAVE MIDLINE INSERTION THIS AM. MD MADE AWARE. ALL NEEDS MET. NO SIGNIFICANT CHANGES THROUGH THE NIGHT. PATIENT KEPT CLEAN DRY AND COMFORTABLE. BED IN LOW LOCKED POSITION WITH SIDE RAILS X2. CALL LIGHT WITHIN REACH. WILL ENDORSE TO AM SHIFT FOR CATHERINE.
[2017-09-08 06:54] LABS: HEMATOCRIT 34 % (33-45); HEMOGLOBIN 11.5 g/dL (11.5-14.8); LYMPHOCYTES # (AUTO) 0.3 /CMM (0.8-4.8); LYMPHOCYTES % (AUTO) 2.4 % (20.0-44.0); MEAN CORPUSCULAR HEMOGLOBIN 31 PG (26.0-33.0); MEAN CORPUSCULAR HGB CONC 34 g/dl (31.0-36.0); MEAN CORPUSCULAR VOLUME 91 fL (82-100); MONOCYTES # (AUTO) 0.6 /CMM (0.1-1.30); MONOCYTES % (AUTO) 4.9 % (2.0-12.0); NEUTROPHILS # (AUTO) 11.9 /CMM (1.8-8.9); NEUTROPHILS % (AUTO) 92.7 % (43.0-81.0); PLATELET COUNT (AUTO) 88 /CMM (150-450); RDW COEFFICIENT OF VARIATION 18.3 (11.5-15.0); RED BLOOD CELL COUNT(AUTO) 3.71 MIL/uL (4.0-5.2); WHITE BLOOD COUNT (AUTO) 12.9 K/uL (4.3-11.0)
[2017-09-08 07:05] LABS: ALBUMIN 1.7 g/dL (3.4-5.0); BILIRUBIN,TOTAL 1.1 mg/dL (0.2-1.0); CALCIUM, SERUM 8.8 mg/dL (8.5-10.1); CREATININE 1.8 mg/dL (0.6-1.3); MAGNESIUM 1.6 mg/dL (1.8-2.4); PHOSPHORUS 4.5 mg/dL (2.5-4.9); TOTAL PROTEIN, SERUM 4.4 g/dL (6.4-8.2)
--- NOTE | 2017-09-08 07:36 | NUR ---
FLOOR SWEEPER OPENING NOTE PATIENT IS ASLEEP COMFORTABLY AT THIS TIME WITH BED LOCKED IN LOWEST POSITION. NO FACIAL GRIMACING NOTED FOR PAIN. NO SOB OR DISTRESS NOTED. CALL LIGHT WITHIN REACH. 2L/MIN OF OXYGEN VIA NASAL CANNULA TOLERATING WELL. TELE MONITOR SR-93. HAS LEFT UPPER ARM AV FISTULA, REFUSED IV BUT AWAITING FOR MIDLINE PLACEMENT. LABS PENDING AT THIS TIME. WILL CONTINUE TO MONITOR THROUGHOUT SHIFT
[2017-09-08 07:45] LABS: THYROID STIMULATING HORMONE 1.989 uIU/mL (0.358-3.74)
[2017-09-08 08:00] VITALS: BP 100/65
[2017-09-08] MEDS: predniSONE 5 MG TABLET PO SCH (08:36)
[2017-09-08] MEDS: ASCORBIC ACID 500 MG TABLET PO SCH (08:36)
[2017-09-08] MEDS: MAGNESIUM OXIDE 400 MG TABLET PO SCH ×2 (08:36→21:11)
[2017-09-08] MEDS: MULTIVITAMINS,THERAGRAN 1 UDTAB TABLET PO SCH (08:36)
[2017-09-08] MEDS: TACROLIMUS ANHYDROUS 0.5 MG CAPSULE PO SCH ×2 (08:36→21:12)
[2017-09-08 08:58] LABS: TROPONIN I 0.034 ng/mL (0.00-0.056)
[2017-09-08] MEDS ORDERED: predniSONE 10 MG TABLET PO SCH (09:00)
[2017-09-08] MEDS: MYCOPHENOLATE SODIUM 180 MG TABLET.DR PO SCH ×2 (09:27→21:10)
[2017-09-08] MEDS: CHOLECALCIFEROL 1,000 UNIT TABLET (VIT D3) PO SCH (09:27)
[2017-09-08 10:03] LABS: LYMPHOCYTES % (MANUAL) 1 % (16-48); MONOCYTES % (MANUAL) 2 % (0-11.0); MYELOCYTES % 1 % (0-0); NEUTROPHILS % (MANUAL) 96 (42-76)
[2017-09-08] MEDS ORDERED: Magnesium 1GM/D5W 100ML PREMIX 100 ML IV SCH ×2 (10:06→10:09)
[2017-09-08] MEDS: ALBUMIN 25% 25 GM in PREMIX 1 EA IV SCH ×2 (13:36→17:54)
[2017-09-08 16:00] VITALS: BP 108/56
--- NOTE | 2017-09-08 18:34 | NUR ---
MS RN CLOSING NOTE PATIENT IS RESTING COMFORTABLY AT THIS TIME. NO PAIN NOTED. NO SOB OR DISTRESS NOTED. CALL LIGHT WITHIN REACH AT ALL TIMES. SAFETY MEASURES IMPLEMENTED. ALL DUE MEDICATIONS GIVEN ORDERED. ADELA MIDLINE INTACT AND PATENT, ALBUMIN RUNNING AT THIS TIME.ON 2L/SD OF OXYGEN VIA NASAL CANNULA TOLERATING WELL. AWAITING URINE SAMPLE, PATIENT REFUSED STRAIGHT CATH TO COLLECT URINE. WILL ENDORSE TO GARNETT MACHINE OPERATOR NURSE FOR CATHERINE
--- NOTE | 2017-09-08 19:45 | NUR ---
MS FUND CONTROLLER INITIAL NOTES CHECKED PT AFTER GOT REPORT FROM AM NURSE. SHE'S AWAKE AND ALERT ON SEMI FOWLERS POSITION WITH SIDE RAILS X2 UP AND BED IN LOW AND LOCK IN POSITION. HEPLOCK PATENT AND INTACT. DENIES ANY PAIN OR ANY DISCOMFORT. NO SIGNS OF ANY ACUTE DISTRESS NOTED . KEPT HER WARM AND COMFORTABLE AT ALL TIMES. AT THE BEDSIDE . BED ALARM SET FOR SAFETY. WILL CONTINUE TO MONITOR. PLACE CALL LIGHT AT REACH.
[2017-09-08 20:00] VITALS: BP 123/74
[2017-09-08 20:13] VITALS: BP 123/74
[2017-09-08] MEDS: CINACALCET HCL 30 MG TABLET PO SCH (21:11)
[2017-09-09] MEDS: ALBUMIN 25% 25 GM in PREMIX 1 EA IV SCH ×2 (00:09→06:17)
--- NOTE | 2017-09-09 07:00 | NUR ---
While rounding with cardiac/vascular sonographer nurse for change of shift endorsement. Patient was in bed with closed eyes. Call light with in reach. Patient is in semi-alex's position. noted with a.v. on left arm, good bruit and thrill. UE pulses palpable, LE diminished and noted with 2+ edematous, Bilt LE warm to the touch. Patient denies any pain at this point and time. No episodes of cardiopulmonary distress on cardiac/vascular sonographer. Patient is stable at change of shift.
[2017-09-09 08:00] VITALS: BP 117/61
[2017-09-09] MEDS: IV NS 0.9% 1,000 ML IV PRN ×2 (08:37→20:33)
--- NOTE | 2017-09-09 08:37 | NUR ---
at bedside, noted new order and carried out. NS at 125 ml/hr.
[2017-09-09] MEDS: MAGNESIUM OXIDE 400 MG TABLET PO SCH ×2 (08:47→20:29)
[2017-09-09] MEDS: predniSONE 5 MG TABLET PO SCH (08:47)
[2017-09-09] MEDS: MULTIVITAMINS,THERAGRAN 1 UDTAB TABLET PO SCH (08:47)
[2017-09-09] MEDS: TACROLIMUS ANHYDROUS 0.5 MG CAPSULE PO SCH ×2 (08:47→20:29)
[2017-09-09] MEDS: ASCORBIC ACID 500 MG TABLET PO SCH (08:47)
[2017-09-09] MEDS: MYCOPHENOLATE SODIUM 180 MG TABLET.DR PO SCH ×2 (08:47→20:28)
--- NOTE | 2017-09-09 10:02 | NUR ---
WOUND CARE CONSULT WOUND CARE RECEIVED CONSULT FOR GROIN AND SACRAL REDNESS. WOUND CARE WILL DEFER TO SURGICAL TEAM WHO ARE CURRENTLY FOLLOWING. THERE ARE TREATMENT PLANS IN PLACE. PATIENT WITH BILLY AT 17, ALL PRESSURE ULCER PREVENTION MEASURES NOTED TO BE IN PLACE.
[2017-09-09 11:52] LABS: EOSINOPHILS % (AUTO) 0.1 % (0.0-6.0); HEMATOCRIT 23 % (33-45); HEMOGLOBIN 7.8 g/dL (11.5-14.8); LYMPHOCYTES # (AUTO) 0.2 /CMM (0.8-4.8); LYMPHOCYTES % (AUTO) 2.3 % (20.0-44.0); MEAN CORPUSCULAR HEMOGLOBIN 31 PG (26.0-33.0); MEAN CORPUSCULAR HGB CONC 34 g/dl (31.0-36.0); MEAN CORPUSCULAR VOLUME 92 fL (82-100); MONOCYTES # (AUTO) 0.4 /CMM (0.1-1.30); MONOCYTES % (AUTO) 5.2 % (2.0-12.0); NEUTROPHILS # (AUTO) 6.9 /CMM (1.8-8.9); NEUTROPHILS % (AUTO) 92.4 % (43.0-81.0); PLATELET COUNT (AUTO) 58 /CMM (150-450); RDW COEFFICIENT OF VARIATION 18.6 (11.5-15.0); RED BLOOD CELL COUNT(AUTO) 2.53 MIL/uL (4.0-5.2); WHITE BLOOD COUNT (AUTO) 7.4 K/uL (4.3-11.0)
[2017-09-09 12:04] LABS: CALCIUM, SERUM 8.1 mg/dL (8.5-10.1); CREATININE 1.5 mg/dL (0.6-1.3); MAGNESIUM 1.8 mg/dL (1.8-2.4); POTASSIUM 3.6 mmol/L (3.5-5.1)
[2017-09-09 12:44] LABS: LYMPHOCYTES % (MANUAL) 2 % (16-48); MONOCYTES % (MANUAL) 3 % (0-11.0); NEUTROPHILS % (MANUAL) 95 (42-76)
[2017-09-09] MEDS: BOOST PLUS FOOD-CHOCLATE 237 ML BOX PO SCH ×2 (13:24→17:03)
[2017-09-09] MEDS: NYSTATIN (PYXIS) 500,000 UNIT/5 ML ORAL.SUSP PO SCH ×2 (13:24→17:03)
[2017-09-09 16:00] VITALS: BP 134/75
[2017-09-09 19:23] LABS: CREATININE, URINE 22.2 MG/DL (30.0-125.0)
--- NOTE | 2017-09-09 19:30 | NUR ---
MS ELADIO INITIAL NOTES SEEN PT IN BED AFTER GOT REPORT FROM AM NURSE . PT AWAKE AND ALERT TALKING TO HER AT THE BEDSIDE. RESPIRATION EVEN AND NON-LABORED, NO SIGNS OF ANY ACUTE DISTRESS NOTED. EDEMA STILL NOTED ON BOTH LOWER EXTREMITIES.SKIN WARM AND DRY TO TOUCH. KEPT HER WARM AND COMFORTABLE AT ALL TIMES. PLACE CALL LIGHT AT REACH. WILL CONTINUE TO MONITOR.
[2017-09-09 19:31] LABS: APPEARANCE,URINE SL CLOUDY (CLEAR); BILIRUBIN,URINE NEGATIVE (NEGATIVE); BLOOD, URINE 3+ Ery/uL (NEGATIVE); COLOR,URINE YELLOW (YELLOW); KETONES,URINE NEGATIVE (NEGATIVE); LEUKOCYTE ESTERASE ,URINE 3+ (NEGATIVE); NITRITE, URINE NEGATIVE (NEGATIVE); PROTEIN,URINE TRACE mg/dl (NEGATIVE); UGLUCOSE NEGATIVE (NEGATIVE); UROBILINOGEN,URINE 0.2 EU/dL (0.2)
[2017-09-09] MEDS ORDERED: ASPIRIN EC 81 MG TABLET.DR PO ONE (19:38)
[2017-09-09 19:39] LABS: BACTERIA,URINE Many /HPF (None Seen); EOSINOPHIL,URINE None Seen; RBC,URINE TOO NUMEROUS TO COUN /HPF (0-2); SQUAMOUS EPITHELIAL CELL,UR Few /HPF (None Seen); WBC,URINE TOO NUMEROUS TO COUN /HPF (0-3)
[2017-09-09 20:00] VITALS: BP 143/69
[2017-09-09] MEDS: CINACALCET HCL 30 MG TABLET PO SCH (20:29)
--- NOTE | 2017-09-10 | NUR ---
FILM WAXER NOTES PT SLEEPING COMFORTABLY IN BED WITHOUT ANY ACUTE DISTRESS NOTED. IVF STILL INFUSING AT THIS TIME. NO REDNESS NOTED . KEPT HER WARM AND COMFORTABLE AT ALL TIMES. PLACE CALL LIGHT AT REACH. WILL CONTINUE TO MONITOR.
[2017-09-10] MEDS: IV NS 0.9% 1,000 ML IV PRN ×2 (07:25→20:06)
--- NOTE | 2017-09-10 07:30 | NUR ---
MS STOREROOM KEEPER CLOSING NOTES PT REMAINS SLEEPING COMFORTABLY IN BED WITH IVF STILL INFUSING. STABLE PARMJIT THE NIGHT AND DENIES ANY PAIN OR ANY DISCOMFORT. MORNING CARE DONE AND KEPT HER WARM AND COMFORTABLE AT ALL TIMES. REFUSED TO HAVE HER BLOOD DRAW CHARGE NURSE HUMAIRA AND CHARGE NURSE SARAH AWARE. BREATHING EVEN AND NON-LABORED. SKIN WARM AND DRY TO TOUCH, NOTED EDEMA ON BOTH LOWER LEGS. NO SOB NOTED. ENDORSE TO AM NURSE FOR CONTINUITY OF CARE.PLACE CALL LIGHT AT REACH.
--- NOTE | 2017-09-10 07:51 | NUR ---
WHILE ROUNDING ON CHANGE OF SHIFT. NOTED PATIENT SLEEPING IN BED LAYING ON LEFT SIDE IN SEMI-TERRAZAS'S POSITION. NOTED NO SWELLING IN UE, LUE NOTED AV FISTULA WITH GOOD BRUIT AND THRILL, RUE MID LINE, BILATERAL WARM AND PALPABLE PULSES NOTED. ON BILATERAL LE NOTED SWELLING FROM BELOW KNEES TO TOES 1 +, WARM TO TOUCH AND NOTED DIMINISHED PALPABLE PEDAL PULSES. CALL LIGHT WITH IN REACH. PATIENT DENIES ANY PAIN OR DISCOMFORT AT THIS POINT AND TIME. NO EPISODES OF CARDIOPULMONARY DISTRESS ON BLOCKING MACHINE OPERATOR SECOND. PATIENT IS STABLE AT THIS POINT AND TIME.
[2017-09-10 08:00] VITALS: BP 143/69
[2017-09-10] MEDS: MYCOPHENOLATE SODIUM 180 MG TABLET.DR PO SCH ×2 (08:55→21:01)
[2017-09-10] MEDS: NYSTATIN (PYXIS) 500,000 UNIT/5 ML ORAL.SUSP PO SCH ×3 (08:55→17:26)
[2017-09-10] MEDS: TACROLIMUS ANHYDROUS 0.5 MG CAPSULE PO SCH ×2 (08:55→21:04)
[2017-09-10] MEDS: MULTIVITAMINS,THERAGRAN 1 UDTAB TABLET PO SCH (09:00)
[2017-09-10] MEDS: MAGNESIUM OXIDE 400 MG TABLET PO SCH ×2 (09:00→21:04)
[2017-09-10] MEDS: predniSONE 5 MG TABLET PO SCH (09:00)
[2017-09-10] MEDS: ASCORBIC ACID 500 MG TABLET PO SCH (09:00)
[2017-09-10] MEDS: CHOLECALCIFEROL 1,000 UNIT TABLET (VIT D3) PO SCH (09:00)
[2017-09-10 09:04] LABS: CALCIUM, SERUM 8.9 mg/dL (8.5-10.1); CREATININE 1.5 mg/dL (0.6-1.3); POTASSIUM 3.9 mmol/L (3.5-5.1)
[2017-09-10 09:09] LABS: BILIRUBIN,TOTAL 1.1 mg/dL (0.2-1.0); TOTAL PROTEIN, SERUM 4.6 g/dL (6.4-8.2)
[2017-09-10 09:17] LABS: EOSINOPHILS % (AUTO) 0.3 % (0.0-6.0); HEMATOCRIT 26 % (33-45); HEMOGLOBIN 8.6 g/dL (11.5-14.8); LYMPHOCYTES # (AUTO) 0.2 /CMM (0.8-4.8); LYMPHOCYTES % (AUTO) 2.7 % (20.0-44.0); MEAN CORPUSCULAR HEMOGLOBIN 30 PG (26.0-33.0); MEAN CORPUSCULAR HGB CONC 33 g/dl (31.0-36.0); MEAN CORPUSCULAR VOLUME 91 fL (82-100); MONOCYTES # (AUTO) 0.5 /CMM (0.1-1.30); MONOCYTES % (AUTO) 5.6 % (2.0-12.0); NEUTROPHILS # (AUTO) 7.7 /CMM (1.8-8.9); NEUTROPHILS % (AUTO) 91.4 % (43.0-81.0); PLATELET COUNT (AUTO) 70 /CMM (150-450); RDW COEFFICIENT OF VARIATION 18.2 (11.5-15.0); RED BLOOD CELL COUNT(AUTO) 2.85 MIL/uL (4.0-5.2); WHITE BLOOD COUNT (AUTO) 8.4 K/uL (4.3-11.0)
[2017-09-10] MEDS: BOOST PLUS FOOD-CHOCLATE 237 ML BOX PO SCH ×3 (09:20→17:26)
[2017-09-10 10:01] LABS: LYMPHOCYTES % (MANUAL) 1 % (16-48); MONOCYTES % (MANUAL) 3 % (0-11.0); NEUTROPHILS % (MANUAL) 96 (42-76)
[2017-09-10 10:19] LABS: INR 1.6 (0.87-1.13)
[2017-09-10] MEDS ORDERED: CEFTRIAXONE 1 G in IV NS 0.9% 50 ML IV SCH (18:00)
--- NOTE | 2017-09-10 19:30 | NUR ---
RN NOTES RECEIVED PT. AWAKE ON BED, A/OX3, AT BEDSIDE, PT. NEEDS TO BE CHANGE, CARBON CLEANER CHANGE THE PT. DID THE EVENING CARE, NOTICED AFTER THE EVENING CARE , MASSAGE PT. BILATERAL LOWER EXTREMITIES, CALL LIGHT WITHIN REACH, [id number] CONTINUE TO MONITOR
[2017-09-10 20:00] VITALS: BP 132/75
--- NOTE | 2017-09-10 21:00 | NUR ---
RN NOTES WHILE MAKING ROUND, NOTICED STILL MASSAGING PT. BILATERAL LEGS AND AND PT. LEGS HAS EDEMA. GAVE EDUCATION TO PT'S REGARDING MASSAGING THE PT'S LEGS , . PT'S GOT UPSET WHEN I GAVE EDUCATION TO HER REGARDING THE HE MASSAGE PT'S LEGS. CHARGE NURSE MADE AWARE
[2017-09-10] MEDS: CINACALCET HCL 30 MG TABLET PO SCH (21:02)
[2017-09-11] MEDS: IV NS 0.9% 1,000 ML IV PRN ×2 (06:16→23:13)
--- NOTE | 2017-09-11 06:45 | NUR ---
RN NOTES SLEEPING BUT AROUSABLE, IV FLUID RUNNING, ASKED PT IF COMFORTABLE AND "SHE SAID YES", CALL LIGHT WITHIN REACH, [id number], PT. NEEDS ATTENDED
[2017-09-11 08:00] VITALS: BP 137/74
[2017-09-11] MEDS: BOOST PLUS FOOD-CHOCLATE 237 ML BOX PO SCH ×3 (08:00→17:16)
[2017-09-11 08:41] LABS: INR 1.64 (0.87-1.13)
[2017-09-11 08:42] LABS: D-DIMER 9.6 mg/L(FEU (0.17-0.50)
--- NOTE | 2017-09-11 08:59 | NUR ---
RN NOTES PATIENT ALERT AND ORIENTED X3, PATIENT AND FAMILY SPOKE WITH DR. ROMAN, PATIENT STATED SHE WANTS TO GO HOME, SHE DOESN'T WANT TO IN THE HOSPITAL, PER DR. ROMAN, HE WANTS TO REVIEW PATIENT'S LABS FOR TODAY FIRST AND THEN THEY CAN DISCUSS IT AGAIN. PATIENT REFUSED LABS, DR. ROMAN MADE AWARE. PATIENT RE-EDUCATED RE: IMPORTANCE OF LABS, BUT PATIENT REFUSING BECAUSE OF TOO MUCH PAIN FROM POKING. PATIENT IS SCHEDULED FOR HIDA SCAN TODAY WILL BE NPO AFTER BREAKFAST. OFFERED BREAKFAST TO PATIENT BUT PATIENT REFUSING, STATING SHE DOESN'T HAVE AN APPETITE, FOOD HAS TOO MUCH SEASONING. ENCOURAGED ORAL INTAKE AND RE-EDUCATED ABOUT NUTRITIONAL INTAKE. AT BEDSIDE. BLE ELEVATED WITH 2 PILLOWS. IVF CONTINUED ON NS AT 125ML/HR. WILL CONTINUE TO MONITOR.
[2017-09-11] MEDS: CLOTRIMAZOLE 10 MG TROCHE MM SCH ×6 (09:00→20:31)
[2017-09-11] MEDS ORDERED: URSODIOL 300 MG CAPSULE PO SCH (09:00)
[2017-09-11] MEDS: TACROLIMUS ANHYDROUS 0.5 MG CAPSULE PO SCH ×2 (09:05→20:32)
[2017-09-11] MEDS: MYCOPHENOLATE SODIUM 180 MG TABLET.DR PO SCH ×2 (09:06→20:32)
[2017-09-11] MEDS: ASCORBIC ACID 500 MG TABLET PO SCH (09:07)
[2017-09-11] MEDS: MAGNESIUM OXIDE 400 MG TABLET PO SCH ×2 (09:07→20:32)
[2017-09-11] MEDS: predniSONE 5 MG TABLET PO SCH (09:07)
[2017-09-11] MEDS: MULTIVITAMINS,THERAGRAN 1 UDTAB TABLET PO SCH (09:09)
[2017-09-11 10:16] LABS: *SPE A/G RATIO 2.1 (0.7-1.7); *SPE ALBUMIN 2.9 g/dL (2.9-4.4); *SPE ALPHA-1-GLOBULIN 0.2 g/dL (0.0-0.4); *SPE ALPHA-2-GLOBULIN 0.4 g/dL (0.4-1.0); *SPE BETA GLOBULIN 0.3 g/dL (0.7-1.3); *SPE GLOBULIN, TOTAL 1.4 g/dL (2.2-3.9); *SPE M-SPIKE Not Observed g/dL (Not Observed); *SPEGAMMA GLOBULIN 0.5 g/dL (0.4-1.8)
[2017-09-11 10:28] LABS: CALCIUM, SERUM 8.4 mg/dL (8.5-10.1); CREATININE 1.4 mg/dL (0.6-1.3)
[2017-09-11] MEDS: URSODIOL 300 MG CAPSULE PO SCH ×2 (10:43→20:32)
--- NOTE | 2017-09-11 10:53 | NUR ---
RN NOTES PATIENT REFUSING CLOTRIMAZOLE AT THIS TIME, PER PATIENT HER MOUTH IS IN PAIN, EDUCATED PATIENT RE: MEDICATION, BUT PATIENT STILL REFUSED. PER PATIENT "MAYBE LATER." PATIENT AND REQUESTED TO KEEP THE MORNING MEDICATIONS AT BEDSIDE, PATIENT WILL TAKE MEDICATIONS, ON HER OWN PACE. EXPLAINED RISKS AND BENEFITS.
--- NOTE | 2017-09-11 11:50 | NUR ---
RN NOTES PATIENT PREFERS TO TAKE CLOTRIMAZOLE AFTER LUNCH, DR. ROMAN AWARE, AND STATED ITS FINE. PATIENT KEPT NPO AT THIS TIME FOR HIDA SCAN SCHEDULED AT 1230.
--- NOTE | 2017-09-11 15:38 | NUR ---
RN NOTES PATIENT BROUGHT BACK FROM HIDA SCAN, PATIENT BEING FED BY . WILL GIVE CLOTRIMAZOLE AFTER PATIENT EATS. PATIENT IS SCHEDULED TO GO BACK FOR A PART 2 OF HIDA SCAN AT 1745.
[2017-09-11 16:00] VITALS: BP 153/77
--- NOTE | 2017-09-11 17:52 | NUR ---
RN NOTES PATIENT HAD A TOTAL OF 3 BM DURING THIS SHIFT, STOOL WAS LIQUID WITH BROWN CLUMPS, NO ODOR NOTED. PATIENT STILL HAS POOR PO INTAKE. NEEDS ATTENDED AND MET. PATIENT WENT BACK TO NUCLEAR MEDICINE FOR THE 2ND PART OF HIDA SCAN.
--- NOTE | 2017-09-11 18:46 | NUR ---
RN NOTES PATIENT SEEN BY JOSE R LOCKE FROM ID, INFORMED OF BROWN LIQUID STOOLS WITH CLUMPS. PATIENT CAME BACK FROM HIDA SCAN, ONLY TOOK CLOTRIMAZOLE X1, EXPLAINED RISKS AND BENEFITS. PATIENT STATED, I DONT WANT IT ANYMORE, IT TAKES A WHILE TO DISSOLVE, JUST GIVE IT TO ME TOMORROW. AT BEDSIDE, IVF INFUSING. WILL START EATING DINNER, ASSISTED BY THE . PATIENT'S NEEDS ATTENDED AND MET, CALL LIGHT WITHIN REACH, SKIN CARE RENDERED, TURNED AND REPOSITIONED, WILL ENDORSE TO SECTION LEADER FOR CATHERINE.
--- NOTE | 2017-09-11 19:28 | NUR ---
MS RN OPENING NOTES: RECEIVED PT AND IS A/OX3 AND IS CURRENTLY EATING. AT BEDSIDE. PT ON 2LPM VIA NC AND IS TOLERATING WELL. NOTED SWELLING ON BILATERAL LOWER EXTREMITIES. PT HAS ADELA MIDLINE AND IS PATENT AND INTACT. NOTED JACKIE AV SHUNT WELL. PT TO BE CONNECTED TO IV FLUIDS. CALL LIGHT WITHIN PT'S REACH. BED KEPT IN LOW, LOCKED POSITION, AND SIDE RAILS X 2UP. WILL CONTINUE TO MONITOR PT.
[2017-09-11 20:00] VITALS: BP 167/87
[2017-09-11] MEDS: AMPICILLIN 1 GM in IV NS 0.9% 50 ML IV SCH (20:31)
[2017-09-11] MEDS: NYSTATIN (PYXIS) 500,000 UNIT/5 ML ORAL.SUSP PO SCH (20:32)
--- NOTE | 2017-09-11 20:40 | NUR ---
MS RN NOTES: AFTER OPENING NYSTATIN PACKAGE AND POURING IT INTO MEDCUP, PT REFUSED TO TAKE MED. PT DID NOT WANT MED. RISKS AND BENEFITS EXPLAINED. PT VERBALIZED THAT SHE HAS BEEN TAKING IT AND IT DOES NOT WORK FOR HER.
[2017-09-11 21:00] VITALS: BP 135/80
[2017-09-11] MEDS: CINACALCET HCL 30 MG TABLET PO SCH (21:00)
[2017-09-12 00:16] LABS: *TACROLIMUS (FK506) 11.2 ng/mL (2.0-20.0)
[2017-09-12] MEDS: AMPICILLIN 1 GM in IV NS 0.9% 50 ML IV SCH ×3 (04:39→20:51)
[2017-09-12] MEDS: IV NS 0.9% 1,000 ML IV PRN ×2 (06:03→14:54)
--- NOTE | 2017-09-12 06:07 | NUR ---
MS RN NOTES: OFFERED PT CLOTRIMAZOLE AT AN EARLY TIME BUT PT WOULD LIKE IT AT A LATER TIME.
--- NOTE | 2017-09-12 06:42 | NUR ---
MS RN CLOSING NOTES: ALL NEEDS WERE ATTENDED AND ANTICIPATED FOR. PT IS ASLEEP IN BED AT THIS TIME. PT ON 2LPM VIA NC AND IS TOLERATING WELL. BILATERAL LOWER EXTREMITIES ELEVATED. PT HAS ADELA MIDLINE AND IS BEING INFUSED WITH NS AT 125ML/HR. PT ALSO HAS JACKIE AV SHUNT. CALL LIGHT WITHIN PT'S REACH. BED KEPT IN LOW, LOCKED POSITION, AND SIDE RAILS X2 UP. WILL ENDORSE TO AM NURSE FOR CATHERINE.
[2017-09-12] MEDS: ALENDRONATE 70 MG TABLET PO SCH (07:30)
--- NOTE | 2017-09-12 07:44 | NUR ---
RN OPENING NOTES: RECEIVED PATIENT RESTING IN BED, A/OX3. NO ACUTE DISTRESS, NO SOB NOTED, ON 2LPM VIA NC AND IS TOLERATING WELL. DENIES PAIN OR DISCOMFORT AT THIS TIME. NOTED SWELLING ON BILATERAL LOWER EXTREMITIES. PATIENT HAS ADELA MIDLINE AND IS PATENT AND INTACT. NOTED JACKIE AV SHUNT WELL. KEPT PATIENT SAFE AND COMFORTABLE. BED KEPT IN LOW, LOCKED POSITION, AND SIDE RAILS X 2UP. CALL LIGHT WITHIN REACH. WILL CONTINUE TO MONITOR ACCORDINGLY.
[2017-09-12 08:00] VITALS: BP 151/81
[2017-09-12] MEDS: predniSONE 5 MG TABLET PO SCH (08:41)
[2017-09-12] MEDS: BOOST PLUS FOOD-CHOCLATE 237 ML BOX PO SCH ×3 (08:42→16:41)
[2017-09-12] MEDS: MAGNESIUM OXIDE 400 MG TABLET PO SCH ×2 (08:43→20:53)
[2017-09-12] MEDS: MYCOPHENOLATE SODIUM 180 MG TABLET.DR PO SCH ×2 (08:43→20:50)
[2017-09-12] MEDS: MULTIVITAMINS,THERAGRAN 1 UDTAB TABLET PO SCH (08:44)
[2017-09-12] MEDS: URSODIOL 300 MG CAPSULE PO SCH ×2 (08:44→20:53)
[2017-09-12] MEDS: ACIDOPHILUS/BULGARICUS 1 EACH TAB.CHEW PO SCH ×3 (08:44→16:39)
[2017-09-12] MEDS: TACROLIMUS ANHYDROUS 0.5 MG CAPSULE PO SCH ×2 (08:45→20:50)
[2017-09-12] MEDS: ASCORBIC ACID 500 MG TABLET PO SCH (08:45)
[2017-09-12] MEDS: NYSTATIN (PYXIS) 500,000 UNIT/5 ML ORAL.SUSP PO SCH ×5 (08:46→21:00)
[2017-09-12] MEDS: CHOLECALCIFEROL 1,000 UNIT TABLET (VIT D3) PO SCH (08:50)
[2017-09-12] MEDS: CLOTRIMAZOLE 10 MG TROCHE MM SCH ×5 (08:50→20:53)
--- NOTE | 2017-09-12 08:55 | NUR ---
RN NOTES [facility] NON ADMIN; MED IS ONCE A WEEK, SCHEDULED EVERY THURSDAY.
[2017-09-12] MEDS ORDERED: FLUCONAZOLE (100 MG) 100 MG TABLET PO SCH (09:00)
--- NOTE | 2017-09-12 09:08 | NUR ---
RN NOTES BROUGHT HOME MEDICATIONS, VIT D3 5000UNITS, MEDS GIVEN TO WILLA FROM PHARMACY.
[2017-09-12 16:00] VITALS: BP 138/64
--- NOTE | 2017-09-12 19:15 | NUR ---
MS/RN NOTES RECEIVED PT. LYING IN BED. AWAKE, ALERT AND ORIENTED X3. BREATHING EVEN AND UNLABORED ON 2LPM O2 VIA NC. NO SOB, RESPIRATORY DISTRESS OR COMPLAINTS OF PAIN NOTED AT THIS TIME. PT. WITH RIGHT UPPER ARM MIDLINE PRESENT, PATENT AND INTACT ADMINISTERING TO PT. NS @ 125 ML/HR. PT. PRESENT AT BEDSIDE. ISOLATION PRECAUTIONS IMPLEMENTED AND IN PLACE. BED LOCKED AND IN LOWEST POSITION, SIDE RAILS UP X2, CALL LIGHT WITHIN REACH, WILL CONTINUE TO MONITOR.
--- NOTE | 2017-09-12 19:24 | NUR ---
RN CLOSING NOTES PATIENT IN BED RESTING, ON BEDSIDE. NO ACUTE DISTRESS, NO SOB NOTED. ALL NEEDS ATTENDED AND PROVIDED. KEPT PATIENT SAFE AND COMFORTABLE IN BED. TURN AND REPOSITION EVERY 2 HRS NEEDED. BED IN LOW/LOCKED POSITION, SIDERAILS UP, CALL LIGHT IN REACH. ENDORSED TO NIGHT RN FOR CATHERINE.
[2017-09-12 20:00] VITALS: BP 142/64
[2017-09-12] MEDS: CINACALCET HCL 30 MG TABLET PO SCH (22:00)
[2017-09-13] MEDS: AMPICILLIN 1 GM in IV NS 0.9% 50 ML IV SCH ×3 (05:32→20:41)
--- NOTE | 2017-09-13 06:39 | NUR ---
MS/RN NOTES PT. IS LYING IN BED RESTING. BREATHING EVEN AND UNLABORED ON ROOM AIR. NO SOB, RESPIRATORY DISTRESS OR COMPLAINTS OF PAIN NOTED AT THIS TIME AND THROUGHOUT SHIFT. PT. WITH RIGHT UPPER ARM MIDLINE PRESENT, PATENT AND INTACT ADMINISTERING TO PT. NS @ 125 ML/HR. ALL PT. NEEDS MET. ISOLATION PRECAUTIONS IMPLEMENTED AND IN PLACE. BED LOCKED AND IN LOWEST POSITION, SIDE RAILS UP X2, CALL LIGHT WITHIN REACH, WILL ENDORSE TO DAYSHIFT NURSE FOR CONTINUITY OF CARE.
[2017-09-13] MEDS: CLOTRIMAZOLE 10 MG TROCHE MM SCH ×5 (07:00→20:42)
--- NOTE | 2017-09-13 07:46 | NUR ---
RN NOTES: PATIENT REFUSING MYCELEX STATING THAT SHE WILL TAKE THE REST OF HER MEDS WITH HER WHEN HE COMES LATER. BENEFITS AND RISKS EXPLAINED AT LENGTH WITH PATIETNT
[2017-09-13 08:00] VITALS: BP 157/80
[2017-09-13] MEDS: ALENDRONATE 70 MG TABLET PO SCH (08:44)
[2017-09-13] MEDS: TACROLIMUS ANHYDROUS 0.5 MG CAPSULE PO SCH ×2 (08:56→20:42)
[2017-09-13] MEDS: MYCOPHENOLATE SODIUM 180 MG TABLET.DR PO SCH ×2 (08:56→20:42)
[2017-09-13] MEDS: BOOST PLUS FOOD-CHOCLATE 237 ML BOX PO SCH ×3 (09:01→17:00)
[2017-09-13] MEDS: ACIDOPHILUS/BULGARICUS 1 EACH TAB.CHEW PO SCH ×3 (09:35→17:00)
[2017-09-13] MEDS: ASCORBIC ACID 500 MG TABLET PO SCH (09:39)
[2017-09-13] MEDS: MAGNESIUM OXIDE 400 MG TABLET PO SCH ×2 (09:39→20:42)
[2017-09-13] MEDS: MULTIVITAMINS,THERAGRAN 1 UDTAB TABLET PO SCH (09:39)
[2017-09-13] MEDS: predniSONE 5 MG TABLET PO SCH (09:40)
[2017-09-13] MEDS: NYSTATIN (PYXIS) 500,000 UNIT/5 ML ORAL.SUSP PO SCH ×4 (09:40→20:46)
[2017-09-13] MEDS: URSODIOL 300 MG CAPSULE PO SCH ×2 (09:40→20:42)
[2017-09-13 11:33] LABS: ALBUMIN 2.6 g/dL (3.4-5.0); CALCIUM, SERUM 9.1 mg/dL (8.5-10.1); CREATININE 1.2 mg/dL (0.6-1.3); POTASSIUM 3.9 mmol/L (3.5-5.1); TOTAL PROTEIN, SERUM 4.6 g/dL (6.4-8.2)
[2017-09-13 11:56] LABS: BASOPHILS % (AUTO) 0.1 % (0.0-2.0); EOSINOPHILS % (AUTO) 0.3 % (0.0-6.0); HEMATOCRIT 30 % (33-45); LYMPHOCYTES # (AUTO) 0.3 /CMM (0.8-4.8); LYMPHOCYTES % (AUTO) 3.4 % (20.0-44.0); MEAN CORPUSCULAR HEMOGLOBIN 31 PG (26.0-33.0); MEAN CORPUSCULAR HGB CONC 34 g/dl (31.0-36.0); MEAN CORPUSCULAR VOLUME 92 fL (82-100); MONOCYTES # (AUTO) 0.8 /CMM (0.1-1.30); MONOCYTES % (AUTO) 8.5 % (2.0-12.0); NEUTROPHILS # (AUTO) 7.8 /CMM (1.8-8.9); NEUTROPHILS % (AUTO) 87.7 % (43.0-81.0); PLATELET COUNT (AUTO) 60 /CMM (150-450); RDW COEFFICIENT OF VARIATION 19.6 (11.5-15.0); RED BLOOD CELL COUNT(AUTO) 3.21 MIL/uL (4.0-5.2); WHITE BLOOD COUNT (AUTO) 8.9 K/uL (4.3-11.0)
[2017-09-13 13:06] LABS: LYMPHOCYTES % (MANUAL) 1 % (16-48); MONOCYTES % (MANUAL) 3 % (0-11.0); NEUTROPHILS % (MANUAL) 96 (42-76)
[2017-09-13] MEDS: IV NS 0.9% 1,000 ML IV PRN ×2 (13:24→22:52)
[2017-09-13 16:00] VITALS: BP 146/86
--- NOTE | 2017-09-13 19:15 | NUR ---
RN NOTES: PATIENT REFUSING 1700 MEDICATIONS INCLUDING BOOST. BENEFITS AND RISKS EXPLAINED MULTIPLE TIMES PATIENT STILL REFUSING
--- NOTE | 2017-09-13 19:20 | NUR ---
MS/RN NOTES RECEIVED PT. LYING IN BED. AWAKE, ALERT AND ORIENTED X3. BREATHING EVEN AND UNLABORED ON ROOM AIR. NO SOB, RESPIRATORY DISTRESS OR COMPLAINTS OF PAIN NOTED AT THIS TIME. PT. WITH RIGHT UPPER ARM MIDLINE PRESENT, PATENT AND INTACT ADMINISTERING TO PT. NS @ 125 ML/HR. ISOLATION PRECAUTIONS IMPLEMENTED AND IN PLACE. BED LOCKED AND IN LOWEST POSITION, SIDE RAILS UP X2, CALL LIGHT WITHIN REACH, WILL CONTINUE TO MONITOR.
--- NOTE | 2017-09-13 19:30 | NUR ---
RN NOTES PATIENT RESTING IN BED.NONLABORED BREATHING NOTED ON ROOM AIR. NO SIGNS OF DISTRESS NOTED. PATIENT DENIES DIFFICULTY BREATHING. DENIES PAIN. MIDLINE ON RIGHT UA PATENT AND INTACT. CALL LIGHT WITHIN REACH. BED IN LOWEST LOCKED POSITION. PATIENT REMAINED STABLE DURING SHIFT. OFFERED TO AMBULATE PATIENT OUT OF BED. PATIENT REFUSED STATING THAT SHE WANTS TO REST. PATIENT EDUCATED ON BENEFITS AND RISKS. PATIENT TURNED AND REPOSITIONED EVERY 2 HOURS. STOOL SAMPLED COLLECTED AND PLACED IN [place]IDGE FOR LAB STEEL MANAGER. DURING SHIFT , PATIENT TURNED AND REPOISITONED EVERY 2 HOURS, KEPT CLEAN AND DRY. ENDORSED TO ANATOLIY CARMONA PATIENT DENIED DIFFICULTY SWALLOWING DURING SHIFT, DENIED THROAT PAIN
[2017-09-13 20:00] VITALS: BP 158/81
[2017-09-13] MEDS: CINACALCET HCL 30 MG TABLET PO SCH (22:00)
[2017-09-14] MEDS: AMPICILLIN 1 GM in IV NS 0.9% 50 ML IV SCH ×3 (05:54→20:27)
--- NOTE | 2017-09-14 06:12 | NUR ---
MS/RN NOTES PT. IS LYING IN BED RESTING. BREATHING EVEN AND UNLABORED ON ROOM AIR. NO SOB, RESPIRATORY DISTRESS OR COMPLAINTS OF PAIN NOTED AT THIS TIME. PT. WITH RIGHT UPPER ARM MIDLINE PRESENT, PATENT AND INTACT ADMINISTERING TO PT. NS @ 125 ML/HR. ISOLATION PRECAUTIONS IMPLEMENTED AND IN PLACE. ALL PT. NEEDS MET. BED LOCKED AND IN LOWEST POSITION, SIDE RAILS UP X2, CALL LIGHT WITHIN REACH, WILL ENDORSE TO DAYSHIFT NURSE FOR CONTINUITY OF CARE.
[2017-09-14 08:00] VITALS: BP 147/73
--- NOTE | 2017-09-14 08:00 | NUR ---
m/s certified executive chef: initial assessment received pt in bed awake, a/ox3, but passive. continue on ivf of ns at 125ml/hr, infusing well via right upper arm midline. pt wearing her own clothes with hospital gown on top. pt refused full body assessment. isolation precaution maintained. will continue to monitor.
[2017-09-14] MEDS: TACROLIMUS ANHYDROUS 0.5 MG CAPSULE PO SCH ×2 (08:45→20:28)
[2017-09-14] MEDS: MYCOPHENOLATE SODIUM 180 MG TABLET.DR PO SCH ×2 (08:45→20:29)
[2017-09-14] MEDS: CLOTRIMAZOLE 10 MG TROCHE MM SCH ×5 (08:46→20:28)
[2017-09-14] MEDS: BOOST PLUS FOOD-CHOCLATE 237 ML BOX PO SCH ×3 (08:46→17:00)
[2017-09-14] MEDS: MAGNESIUM OXIDE 400 MG TABLET PO SCH ×2 (08:47→20:28)
[2017-09-14] MEDS: URSODIOL 300 MG CAPSULE PO SCH ×2 (08:47→20:29)
[2017-09-14] MEDS: predniSONE 5 MG TABLET PO SCH (08:47)
[2017-09-14] MEDS: MULTIVITAMINS,THERAGRAN 1 UDTAB TABLET PO SCH (08:47)
[2017-09-14] MEDS: NYSTATIN (PYXIS) 500,000 UNIT/5 ML ORAL.SUSP PO SCH ×5 (08:47→21:00)
[2017-09-14] MEDS: ASCORBIC ACID 500 MG TABLET PO SCH (08:48)
[2017-09-14] MEDS: ACIDOPHILUS/BULGARICUS 1 EACH TAB.CHEW PO SCH ×4 (08:48→18:06)
[2017-09-14] MEDS ORDERED: LIDOCAINE VISCOUS 2% UD 15 ML UDC MM PRN (09:00)
[2017-09-14] MEDS: CHOLECALCIFEROL 1,000 UNIT TABLET (VIT D3) PO SCH (12:26)
--- NOTE | 2017-09-14 15:00 | NUR ---
m/s adult education professional: notes remains at bedside. pt resting quietly in bed with no s/s of distress noted. call light within reach. will continue to monitor.
[2017-09-14 16:00] VITALS: BP 161/92
--- NOTE | 2017-09-14 16:30 | NUR ---
m/s field reimbursement manager: notes pt refused blood draw. instructed to call for assistance. will continue to monitor.
[2017-09-14] MEDS: IV NS 0.9% 1,000 ML IV PRN (18:06)
--- NOTE | 2017-09-14 18:30 | NUR ---
m/s rat culturist: notes pt resting quietly in bed with remains at bedside. needs attended. no distress noted. will continue to monitor.
--- NOTE | 2017-09-14 19:29 | NUR ---
MS RN NOTES: RECEIVED PT IN BED AND IS RESTING IN BED COMFORTABLY. AT BEDSIDE. PT ON ROOM AIR AND TOLERATING WELL. NO SOB NOTED. NO S/S OF DISTRESS NOTED AT THIS TIME. PT HAS ADELA MIDLINE AND IS PATENT AND INTACT. PT ALSO HAS JACKIE AV SHUNT. CALL LIGHT WITHIN PT'S REACH. BED KEPT IN LOW, LOCKED POSITION, AND SIDE RAILS X 2UP. WILL CONTINUE TO MONITOR PT.
[2017-09-14 20:00] VITALS: BP 152/81
[2017-09-14] MEDS: CHLORHEXIDINE GLUCONATE 15 ML UDC MM SCH (20:28)
[2017-09-14] MEDS: NYSTATIN CREAM 15 GM TUBE TP SCH (20:41)
--- NOTE | 2017-09-14 21:21 | NUR ---
MS RN NOTES: PT REFUSED NYSTATIN. PT SAID IT DOES NOT WORK FOR HER. EXPLAINED TO PT RISKS AND BENEFITS OF MEDICATIONS BUT PT STILL REFUSING.
[2017-09-14] MEDS: CINACALCET HCL 30 MG TABLET PO SCH (21:24)
[2017-09-15] MEDS: IV NS 0.9% 1,000 ML IV PRN ×2 (01:59→13:17)
[2017-09-15] MEDS: AMPICILLIN 1 GM in IV NS 0.9% 50 ML IV SCH ×2 (04:10→12:10)
--- NOTE | 2017-09-15 04:25 | NUR ---
MS RN NOTES: PT WAS HAVING A DIAPER CHANGED. INFORMED PT THAT URINE NEEDED TO BE COLLECTED. PT DOES NOT WANT TO BE STRAIGHT CATHETERIZED AT THIS TIME. PT SAID "LATER."
--- NOTE | 2017-09-15 06:44 | NUR ---
MS RN CLOSING NOTES: ALL NEEDS WERE ATTENDED AND ANTICIPATED FOR. PT IS ON 2LPM VIA NC AND IS TOLERATING WELL. PT IS IN BED RESTING COMFORTABLY. NO SOB NOTED. NO S/S OF DISTRESS NOTED AT THIS TIME. PT KEPT CLEAN, DRY, AND COMFORTABLE. PT HAS ADELA MIDLINE AND IS PATENT AND INTACT. PT IS BEING INFUSED WITH NS AT 125ML/HR. PT ALSO HAS JACKIE AV SHUNT. CALL LIGHT WITHIN PT'S REACH. BED KEPT IN LOW, LOCKED POSITION, AND SIDE RAILS X 2UP. WILL ENDORSE TO AM NURSE FOR CATHERINE.
--- NOTE | 2017-09-15 07:30 | NUR ---
MS RN NOTES PATIENT IN BED, SLEEPING, AROUSES EASILY. ON OXYGENT AT 2L VIA NC, NO SOB. ADELA MIDLINE PATENT AND INTACT, IVF NS INFUSING AT 125ML/HR. PLACE CALL LIGHT WITHIN REACH. WILL CONT TO MONITOR.
[2017-09-15 08:00] VITALS: BP_SYST 140; BP_SYST 141; BP_DIAS 81
[2017-09-15] MEDS: TACROLIMUS ANHYDROUS 0.5 MG CAPSULE PO SCH (08:49)
[2017-09-15] MEDS: MYCOPHENOLATE SODIUM 180 MG TABLET.DR PO SCH (08:49)
[2017-09-15] MEDS: CHLORHEXIDINE GLUCONATE 15 ML UDC MM SCH ×3 (09:00→16:28)
[2017-09-15] MEDS: NYSTATIN (PYXIS) 500,000 UNIT/5 ML ORAL.SUSP PO SCH ×3 (09:00→16:28)
[2017-09-15] MEDS: ACIDOPHILUS/BULGARICUS 1 EACH TAB.CHEW PO SCH ×3 (10:03→16:28)
[2017-09-15] MEDS: MULTIVITAMINS,THERAGRAN 1 UDTAB TABLET PO SCH (10:04)
[2017-09-15] MEDS: ASCORBIC ACID 500 MG TABLET PO SCH (10:04)
[2017-09-15] MEDS: MAGNESIUM OXIDE 400 MG TABLET PO SCH (10:04)
[2017-09-15] MEDS: predniSONE 5 MG TABLET PO SCH (10:04)
[2017-09-15] MEDS: URSODIOL 300 MG CAPSULE PO SCH (10:05)
[2017-09-15] MEDS: CLOTRIMAZOLE 10 MG TROCHE MM SCH ×4 (10:09→17:30)
[2017-09-15] MEDS: NYSTATIN CREAM 15 GM TUBE TP SCH ×2 (10:10→17:30)
[2017-09-15] MEDS: BOOST PLUS FOOD-CHOCLATE 237 ML BOX PO SCH ×3 (10:10→16:28)
[2017-09-15 16:00] VITALS: BP_SYST 152; BP_DIAS 67; BP_DIAS 97
--- NOTE | 2017-09-15 16:14 | NUR ---
PATIENT REFUSING URINE CATH. FOR TEST URINE CULTURE, EDUCATE PATIENT, EXPLAINED THE IMPORTANCE OF THE TEST, RISK AND BENEFITS, PATIENT STILL REFUSED X3.
--- NOTE | 2017-09-15 16:28 | NUR ---
PATIENT IS NON COMPLIANT TAKING HER MEDICATIONS, PATIENT RE EDUCATED MULTIPLE TIMES, AWARE OF THE INDICATION, RISK AND BENEFITS OF THE MEDICATION, BUT STILL REFUSED X3.
[2017-09-15] MEDS ORDERED: MYCOPHENOLATE SODIUM 180 MG TABLET.DR PO SCH (17:32)
--- NOTE | 2017-09-15 18:16 | NUR ---
MS RN CLOSING NOTES PATIENT IN BED, A/O X3. ADELA MIDLINE PATENT AND INTACT, IVF NS INFUSING AT 125ML/HR. PATIENT WITH EPISODE OF NON COMPLIANT TAKING HER MEDICATIONS, OFFERED MULTIPLE TIMES, GIVEN EDUCATION AND AWARE OF THE RISK BENEFITS, BUT STILL REFUSED. REPOSITION IN BED, MADE COMFORTABLE. CM FOR PLACEMENT. WILL ENDORSE TO ONCOMING RN. Addendum: 09/15/17 at 1825 by SELENE LAM RN CONT BELOW: ON CONTACT ISOLATION VRE URINE, EDUCATE PATIENT AND FAMILY WITH HAND HANDWASHING.
--- NOTE | 2017-09-15 19:30 | NUR ---
RN NOTE; RECEIVED PT IN BED AWAKE W/ FAMILY AT THE BED SIDE. BREATHING EVENLY. NO SOB. NAD. SKIN WARM AND DRY. NO C/O PAIN OR DISCOMFORT. W/ AN ORDER FOR D/C HOME. AWAITING FOR ID CONSULT FOR ATB ORDER TO BE FOLLOWED AT HOME. O2 TANK ALREADY DELIVERED AT THE BED SIDE. CONCENTRATOR TO BE DELIVERED HOME IN AM. ALL NEEDS ATTENDED. BED LOW LOCKED. CALL LIGHT WITHIN REACH. WILL CONT TO MONITOR ,
[2017-09-15 20:00] VITALS: BP 155/85
--- NOTE | 2017-09-15 20:55 | NUR ---
PT WAS DISCHARGED IN STABLE CONDITION. VIA Keel[employer]/ Optyn W/ TWO foxpro developer. ALL BELONGINGS WERE PICKED UP BY THE . PRESCRIPTION FOR ATB AND D/C PAPERS GIVEN TO THE . MID LINE ON ADELA WAS D/C'D W/ NO BLEEDING OR ANY OTHER COMPLICATIONS. VS: WNL. PT WAS OFF OF O2 FOR 10 MINUTES ON CONTINUOUS O2 SAT MONITORING W/ O2 SAT OF 97% ON RA. O2 TANK WAS PICKED UP W/ THE FOR PRN USE AT HOME. PT REFUSED PICTURE TAKING FROM HER SKIN ISSUES.
[2017-09-15] MEDS ORDERED: AMOXICILLIN TRIHYDRATE 250 MG CAPSULE PO SCH (21:00)
== END 2017-09-15 22:19 | disposition home or self-care (01) | DRG 871 ==
LOC: ER 19:13 → TELE 21:56 → MED 09-08 09:32
PROVIDERS: ADMIT Internal Medicine; ATTEND Internal Medicine
PROC: 05H633Z Insertion of Infusion Device into Left Subclavian Vein, Percutaneous Approach (ICD-10-PCS; principal; 2017-09-08)
PROC: B547ZZA Ultrasonography of Left Subclavian Vein, Guidance (ICD-10-PCS; 2017-09-08)
DX: A41.9 Sepsis, unspecified organism (principal); N18.6 End stage renal disease; N17.9 Acute kidney failure, unspecified; I13.2 Hypertensive heart and chronic kidney disease with heart failure and with stage 5 chronic kidney disease, or end stage renal disease; D69.6 Thrombocytopenia, unspecified; R53.2 Functional quadriplegia; Z94.0 Kidney transplant status; K74.60 Unspecified cirrhosis of liver; N39.0 Urinary tract infection, site not specified; B18.1 Chronic viral hepatitis B without delta-agent; I50.9 Heart failure, unspecified; Z99.2 Dependence on renal dialysis; D63.8 Anemia in other chronic diseases classified elsewhere; K64.9 Unspecified hemorrhoids; Z79.899 Other long term (current) drug therapy; Z87.01 Personal history of pneumonia (recurrent); M81.0 Age-related osteoporosis without current pathological fracture; K64.5 Perianal venous thrombosis; L98.9 Disorder of the skin and subcutaneous tissue, unspecified; L30.4 Erythema intertrigo; K80.80 Other cholelithiasis without obstruction; B96.1 Klebsiella pneumoniae [K. pneumoniae] as the cause of diseases classified elsewhere; B96.4 Proteus (mirabilis) (morganii) as the cause of diseases classified elsewhere; B95.2 Enterococcus as the cause of diseases classified elsewhere; E78.5 Hyperlipidemia, unspecified; Z86.19 Personal history of other infectious and parasitic diseases
CPT/HCPCS: 36415; 36569; 71045-TC; 71250-TC; 76700-TC; 78226; 80048-TC; 80053-TC; 80061-TC; 80076-TC; 80197; 81000-TC; 82272-TC; 82306; 82570-TC; 82728-TC; 82746; 83540-TC; 83605-TC; 83735-TC; 83880; 84100-TC; 84155; 84155-TC; 84165; 84300-TC; 84439-TC; 84443-TC; 84484-TC; 85025-TC; 85396; 85730-TC; 87040-TC; 87081-TC; 87086-TC; 87186-TC; 93307-TC; 93971-TC; 94799-TC; 97110-TC; 97530-TC; A4216; A4606; A9537; J0290; J0696; J3475; J7030; J7050; J7507; J7512; J7518; P9047; Z7610

== ENCOUNTER 2017-09-20 11:41 | Inpatient (IN) | payer MEDICARE, BC ==
[~2017-09-20] VITALS: Ht 157.5 cm; Wt 79.8 kg
[~2017-09-20 11:41] MED LIST changes: -PRED20TA GT; -PRED20TA PO; -[UNRECOGNIZED DRUG - OTHER] PO
[2017-09-20 12:36] LABS: BASOPHILS % (AUTO) 0.3 % (0.0-2.0); EOSINOPHILS % (AUTO) 0.4 % (0.0-6.0); HEMATOCRIT 31 % (33-45); HEMOGLOBIN 10.3 g/dL (11.5-14.8); LYMPHOCYTES # (AUTO) 0.3 /CMM (0.8-4.8); LYMPHOCYTES % (AUTO) 2.5 % (20.0-44.0); MEAN CORPUSCULAR HEMOGLOBIN 30 PG (26.0-33.0); MEAN CORPUSCULAR HGB CONC 33 g/dl (31.0-36.0); MEAN CORPUSCULAR VOLUME 91 fL (82-100); MONOCYTES # (AUTO) 0.9 /CMM (0.1-1.30); MONOCYTES % (AUTO) 7.7 % (2.0-12.0); NEUTROPHILS # (AUTO) 10.3 /CMM (1.8-8.9); NEUTROPHILS % (AUTO) 89.1 % (43.0-81.0); PLATELET COUNT (AUTO) 86 /CMM (150-450); RDW COEFFICIENT OF VARIATION 19.5 (11.5-15.0); RED BLOOD CELL COUNT(AUTO) 3.38 MIL/uL (4.0-5.2); WHITE BLOOD COUNT (AUTO) 11.5 K/uL (4.3-11.0)
[2017-09-20 12:47] LABS: CREATININE 1.2 mg/dL (0.6-1.3); POTASSIUM 4.4 mmol/L (3.5-5.1)
[2017-09-20 12:49] LABS: INR 1.54 (0.85-1.15)
[2017-09-20 12:52] LABS: ALBUMIN 1.9 g/dL (3.4-5.0); BILIRUBIN,TOTAL 1.4 mg/dL (0.2-1.0); TOTAL PROTEIN, SERUM 4.4 g/dL (6.4-8.2)
[2017-09-20 12:58] LABS: TROPONIN I 0.091 ng/mL (0.00-0.056)
[2017-09-20] MEDS ORDERED: LIDOCAINE VISCOUS 2% UD 15 ML UDC MM ONE (13:00)
[2017-09-20] MEDS ORDERED: IV NS 0.9% 500 ML BAG IV ONE (14:30)
[2017-09-20] MEDS ORDERED: PIPERACILLIN /TAZOBACTAM 3.375 G in IV D5W 50 ML IV ONE (14:30)
[2017-09-20] MEDS ORDERED: PRED2.5T PO (14:40)
[2017-09-20] MEDS ORDERED: URSO500T9 PO (14:40)
[2017-09-20 14:45] VITALS: BP 149/77
[2017-09-20 15:38] LABS: BAND % (MANUAL) 3 % (0.0-5.0); LYMPHOCYTES % (MANUAL) 3 % (16-48); MONOCYTES % (MANUAL) 5 % (0-11.0); NEUTROPHILS % (MANUAL) 89 (42-76)
[2017-09-20] MEDS ORDERED: ONDANSETRON HCL/PF 4 MG/2 ML VIAL IVP PRN (16:30)
[2017-09-20] MEDS ORDERED: Z GUARD REMEDY 2 OZ OINT TP PRN (16:30)
[2017-09-20] MEDS ORDERED: FEE PK DOSING 1 MIN EA MC ONE (17:10)
[2017-09-20] MEDS: CHLORHEXIDINE GLUCONATE 15 ML UDC MM SCH (17:24)
[2017-09-20] MEDS: LIDOCAINE VISCOUS 2% UD 15 ML UDC MM SCH ×2 (17:24→20:48)
[2017-09-20] MEDS: IV 1/2NS 1000 ML 1,000 ML IV PRN (17:31)
[2017-09-20] MEDS ORDERED: VANCOMYCIN 1 GM in IV D5W 250 ML IV ONE (18:00)
[2017-09-20 18:56] VITALS: BP 149/81
[2017-09-20] MEDS: CEFTRIAXONE 1 G in IV D5W 50 ML IV SCH (18:57)
[2017-09-20 20:00] VITALS: BP 140/93
[2017-09-20] MEDS: TACROLIMUS ANHYDROUS 1 MG CAPSULE PO SCH (21:00)
[2017-09-20] MEDS: URSODIOL 300 MG CAPSULE PO SCH (21:00)
[2017-09-20] MEDS: MAGNESIUM OXIDE 400 MG TABLET PO SCH (21:00)
[2017-09-20] MEDS: MYCOPHENOLATE SODIUM 180 MG TABLET.DR PO SCH (21:32)
[2017-09-20] MEDS: CINACALCET HCL 30 MG TABLET PO SCH (21:39)
[2017-09-20] MEDS ORDERED: PRAVASTATIN SODIUM 20 MG TABLET PO SCH (22:00)
[2017-09-21] VITALS: BP 121/100
[2017-09-21 04:00] VITALS: BP 141/82
[2017-09-21] MEDS: LIDOCAINE VISCOUS 2% UD 15 ML UDC MM SCH ×3 (05:35→21:12)
[2017-09-21 08:00] VITALS: BP_SYST 135; BP_SYST 151; BP_DIAS 56; BP_DIAS 79
[2017-09-21] MEDS: MAGNESIUM OXIDE 400 MG TABLET PO SCH ×2 (08:47→21:13)
[2017-09-21] MEDS: URSODIOL 300 MG CAPSULE PO SCH ×2 (08:47→21:14)
[2017-09-21] MEDS: MYCOPHENOLATE SODIUM 180 MG TABLET.DR PO SCH ×2 (08:47→21:12)
[2017-09-21] MEDS: CALCIUM CARB 250MG /VITAMIN D 1 UDTAB PO SCH (08:48)
[2017-09-21] MEDS: predniSONE 5 MG TABLET PO SCH (08:48)
[2017-09-21] MEDS: TACROLIMUS ANHYDROUS 1 MG CAPSULE PO SCH ×2 (08:48→21:15)
[2017-09-21] MEDS: CHLORHEXIDINE GLUCONATE 15 ML UDC MM SCH ×3 (09:00→21:12)
[2017-09-21 11:38] LABS: BASOPHILS % (AUTO) 0.1 % (0.0-2.0); EOSINOPHILS % (AUTO) 0.2 % (0.0-6.0); HEMATOCRIT 28 % (33-45); HEMOGLOBIN 9.1 g/dL (11.5-14.8); LYMPHOCYTES % (AUTO) 2.6 % (20.0-44.0); MEAN CORPUSCULAR HEMOGLOBIN 30 PG (26.0-33.0); MEAN CORPUSCULAR HGB CONC 33 g/dl (31.0-36.0); MEAN CORPUSCULAR VOLUME 93 fL (82-100); MONOCYTES % (AUTO) 4.8 % (2.0-12.0); NEUTROPHILS % (AUTO) 92.3 % (43.0-81.0); PLATELET COUNT (AUTO) 83 /CMM (150-450); RDW COEFFICIENT OF VARIATION 20.5 (11.5-15.0); RED BLOOD CELL COUNT(AUTO) 3.03 MIL/uL (4.0-5.2); WHITE BLOOD COUNT (AUTO) 10.6 K/uL (4.3-11.0)
[2017-09-21 11:39] LABS: LYMPHOCYTES # (AUTO) 0.3 /CMM (0.8-4.8); MONOCYTES # (AUTO) 0.5 /CMM (0.1-1.30); NEUTROPHILS # (AUTO) 9.8 /CMM (1.8-8.9)
[2017-09-21 11:55] LABS: ALBUMIN 1.9 g/dL (3.4-5.0); CALCIUM, SERUM 9.8 mg/dL (8.5-10.1); CREATININE 1.2 mg/dL (0.6-1.3); PHOSPHORUS 2.9 mg/dL (2.5-4.9); POTASSIUM 4.2 mmol/L (3.5-5.1); TOTAL PROTEIN, SERUM 4.1 g/dL (6.4-8.2)
[2017-09-21 11:57] LABS: THYROID STIMULATING HORMONE 2.372 uIU/mL (0.358-3.74)
[2017-09-21] MEDS ORDERED: VANCOMYCIN 0.75 GM in IV D5W 250 ML IV SCH (12:00)
[2017-09-21 12:01] LABS: BAND % (MANUAL) 1 % (0.0-5.0); LYMPHOCYTES % (MANUAL) 8 % (16-48); MONOCYTES % (MANUAL) 1 % (0-11.0); NEUTROPHILS % (MANUAL) 90 (42-76)
[2017-09-21 12:06] LABS: MAGNESIUM 1.2 mg/dL (1.8-2.4)
[2017-09-21] MEDS: IV 1/2NS 1000 ML 1,000 ML IV PRN (12:30)
[2017-09-21] MEDS: Magnesium 1GM/D5W 100ML PREMIX 100 ML IV SCH ×5 (13:59→18:54)
[2017-09-21 16:00] VITALS: BP 124/73
[2017-09-21] MEDS: ACETAMINOPHEN 325 MG TABLET PO PRN (16:00)
[2017-09-21] MEDS: FIBERSOURCE HN 1,000 ML BOTTLE GT PRN (16:00)
[2017-09-21] MEDS: CEFTRIAXONE 1 G in IV D5W 50 ML IV SCH (19:29)
[2017-09-21 20:00] VITALS: BP 111/57
[2017-09-21] MEDS: NYSTATIN (PYXIS) 500,000 UNIT/5 ML ORAL.SUSP PO SCH (21:12)
[2017-09-21] MEDS: CEFEPIME 1 GM in IV D5W 50 ML IV SCH (21:12)
[2017-09-21] MEDS: CINACALCET HCL 30 MG TABLET PO SCH (21:13)
[2017-09-21 22:00] VITALS: BP 112/57
[2017-09-22] MEDS: LIDOCAINE VISCOUS 2% UD 15 ML UDC MM SCH ×3 (05:15→21:31)
[2017-09-22] MEDS: ACETAMINOPHEN 325 MG TABLET PO PRN ×2 (05:15→16:30)
[2017-09-22] MEDS: CHLORHEXIDINE GLUCONATE 15 ML UDC MM SCH ×5 (05:15→21:37)
[2017-09-22] MEDS: IV 1/2NS 1000 ML 1,000 ML IV PRN (07:28)
[2017-09-22 08:00] VITALS: BP 132/59
[2017-09-22] MEDS: ATORVASTATIN 10 MG TABLET PO SCH (09:15)
[2017-09-22] MEDS: TACROLIMUS ANHYDROUS 1 MG CAPSULE PO SCH ×2 (09:15→21:33)
[2017-09-22] MEDS: NYSTATIN (PYXIS) 500,000 UNIT/5 ML ORAL.SUSP PO SCH ×3 (09:15→16:30)
[2017-09-22] MEDS: CEFEPIME 1 GM in IV D5W 50 ML IV SCH (09:15)
[2017-09-22] MEDS: CALCIUM CARB 250MG /VITAMIN D 1 UDTAB PO SCH (09:15)
[2017-09-22] MEDS: MAGNESIUM OXIDE 400 MG TABLET PO SCH ×2 (09:15→21:32)
[2017-09-22] MEDS: URSODIOL 300 MG CAPSULE PO SCH ×2 (09:15→21:32)
[2017-09-22] MEDS: MYCOPHENOLATE SODIUM 180 MG TABLET.DR PO SCH ×2 (09:16→21:32)
[2017-09-22] MEDS: predniSONE 5 MG TABLET PO SCH (09:16)
[2017-09-22 16:00] VITALS: BP 119/48
[2017-09-22 20:00] VITALS: BP 93/75
[2017-09-22] MEDS: VITS A AND D/WHITE PET/LANOLIN 5 GM PACKET TP SCH (21:33)
[2017-09-22] MEDS: CINACALCET HCL 30 MG TABLET PO SCH (21:37)
[2017-09-23] MEDS: CEFEPIME 1 GM in IV D5W 50 ML IV SCH ×3 (00:06→20:29)
[2017-09-23] MEDS: IV 1/2NS 1000 ML 1,000 ML IV PRN ×2 (00:08→23:38)
[2017-09-23] MEDS: CHLORHEXIDINE GLUCONATE 15 ML UDC MM SCH ×5 (05:49→20:28)
[2017-09-23] MEDS: LIDOCAINE VISCOUS 2% UD 15 ML UDC MM SCH ×3 (05:49→20:34)
[2017-09-23 08:00] VITALS: BP 106/50
[2017-09-23] MEDS: URSODIOL 300 MG CAPSULE PO SCH ×2 (09:45→20:34)
[2017-09-23] MEDS: CALCIUM CARB 250MG /VITAMIN D 1 UDTAB PO SCH (09:45)
[2017-09-23] MEDS: NYSTATIN (PYXIS) 500,000 UNIT/5 ML ORAL.SUSP PO SCH ×3 (09:45→17:44)
[2017-09-23] MEDS: ATORVASTATIN 10 MG TABLET PO SCH (09:45)
[2017-09-23] MEDS: TACROLIMUS ANHYDROUS 1 MG CAPSULE PO SCH (09:46)
[2017-09-23] MEDS: predniSONE 5 MG TABLET PO SCH (09:46)
[2017-09-23] MEDS: MAGNESIUM OXIDE 400 MG TABLET PO SCH ×2 (09:46→20:34)
[2017-09-23] MEDS: MYCOPHENOLATE SODIUM 180 MG TABLET.DR PO SCH ×2 (09:46→20:35)
[2017-09-23] MEDS: VITS A AND D/WHITE PET/LANOLIN 5 GM PACKET TP SCH ×4 (09:55→20:49)
[2017-09-23 13:36] LABS: EOSINOPHILS % (AUTO) 0.1 % (0.0-6.0); HEMATOCRIT 28 % (33-45); LYMPHOCYTES # (AUTO) 0.2 /CMM (0.8-4.8); LYMPHOCYTES % (AUTO) 1.7 % (20.0-44.0); MEAN CORPUSCULAR HEMOGLOBIN 30 PG (26.0-33.0); MEAN CORPUSCULAR HGB CONC 33 g/dl (31.0-36.0); MEAN CORPUSCULAR VOLUME 92 fL (82-100); MONOCYTES # (AUTO) 0.5 /CMM (0.1-1.30); MONOCYTES % (AUTO) 4.2 % (2.0-12.0); NEUTROPHILS # (AUTO) 10.4 /CMM (1.8-8.9); RDW COEFFICIENT OF VARIATION 20.8 (11.5-15.0); RED BLOOD CELL COUNT(AUTO) 2.98 MIL/uL (4.0-5.2)
[2017-09-23 13:42] LABS: PLATELET COUNT (AUTO) 49 /CMM (150-450)
[2017-09-23 14:01] LABS: CALCIUM, SERUM 9.8 mg/dL (8.5-10.1); CREATININE 1.3 mg/dL (0.6-1.3); MAGNESIUM 2.3 mg/dL (1.8-2.4); PHOSPHORUS 2.5 mg/dL (2.5-4.9); POTASSIUM 3.9 mmol/L (3.5-5.1)
[2017-09-23 14:03] LABS: LYMPHOCYTES % (MANUAL) 3 % (16-48); MONOCYTES % (MANUAL) 4 % (0-11.0); NEUTROPHILS % (MANUAL) 93 (42-76)
[2017-09-23] MEDS ORDERED: TACROLIMUS ANHYDROUS 0.5 MG CAPSULE PO SCH (15:00)
[2017-09-23] MEDS: MULTI VITAMIN GT SCH (15:43)
[2017-09-23 16:00] VITALS: BP 120/52
[2017-09-23] MEDS ORDERED: ALBUMIN 25% 12.5 GM/50 ML BOTTLE IV ONE ×3 (16:00→18:00)
[2017-09-23] MEDS ORDERED: ALBUMIN 25% 25 GM in PREMIX 1 EA IV ONE (17:30)
[2017-09-23] MEDS ORDERED: ALBUMIN 25% 12.5 GM in PREMIX 1 EA IV ONE (17:30)
[2017-09-23] MEDS: PROSOURCE / PROSTAT (PYXIS) 30 ML UDC GT SCH (17:44)
[2017-09-23] MEDS: LACTOBACILLUS RHAMNOSUS GG 1 EACH CAP.SPRINK GT SCH (17:44)
[2017-09-23] MEDS: METOCLOPRAMIDE HCL 10 MG TABLET GT SCH ×2 (17:44→23:35)
[2017-09-23] MEDS: MICAFUNGIN SODIUM 100 MG in IV NS 0.9% 100 ML IV SCH (18:19)
[2017-09-23 19:57] VITALS: BP 134/92
[2017-09-23 20:10] VITALS: BP 134/92
[2017-09-23] MEDS: TACROLIMUS ANHYDROUS 0.5 MG CAPSULE PO SCH (20:35)
[2017-09-23] MEDS: CINACALCET HCL 30 MG TABLET PO SCH (22:15)
[2017-09-24] VITALS (38 sets, daily range): BP systolic 47–150; BP diastolic 25–118
[2017-09-24] MEDS: LIDOCAINE VISCOUS 2% UD 15 ML UDC MM SCH ×3 (04:24→21:18)
[2017-09-24] MEDS: CHLORHEXIDINE GLUCONATE 15 ML UDC MM SCH ×5 (04:24→20:28)
[2017-09-24] MEDS: FIBERSOURCE HN 1,000 ML BOTTLE GT PRN (04:58)
[2017-09-24] MEDS: METOCLOPRAMIDE HCL 10 MG TABLET GT SCH ×3 (05:17→17:33)
[2017-09-24] MEDS: ACETAMINOPHEN 325 MG TABLET PO PRN (06:43)
[2017-09-24 07:09] LABS: EOSINOPHILS % (AUTO) 0.1 % (0.0-6.0); HEMATOCRIT 25 % (33-45); HEMOGLOBIN 8.3 g/dL (11.5-14.8); LYMPHOCYTES # (AUTO) 0.2 /CMM (0.8-4.8); MEAN CORPUSCULAR HEMOGLOBIN 31 PG (26.0-33.0); MEAN CORPUSCULAR HGB CONC 33 g/dl (31.0-36.0); MEAN CORPUSCULAR VOLUME 92 fL (82-100); MONOCYTES # (AUTO) 0.3 /CMM (0.1-1.30); MONOCYTES % (AUTO) 4.1 % (2.0-12.0); NEUTROPHILS # (AUTO) 7.3 /CMM (1.8-8.9); NEUTROPHILS % (AUTO) 92.8 % (43.0-81.0); RDW COEFFICIENT OF VARIATION 20.9 (11.5-15.0); RED BLOOD CELL COUNT(AUTO) 2.72 MIL/uL (4.0-5.2); WHITE BLOOD COUNT (AUTO) 7.9 K/uL (4.3-11.0)
[2017-09-24 07:31] LABS: CALCIUM, SERUM 10.1 mg/dL (8.5-10.1); CREATININE 1.4 mg/dL (0.6-1.3); MAGNESIUM 2.5 mg/dL (1.8-2.4); PHOSPHORUS 2.5 mg/dL (2.5-4.9); POTASSIUM 4.1 mmol/L (3.5-5.1)
[2017-09-24 07:45] LABS: PLATELET COUNT (AUTO) 47 /CMM (150-450)
[2017-09-24] MEDS: CALCIUM CARB 250MG /VITAMIN D 1 UDTAB PO SCH (08:14)
[2017-09-24] MEDS: URSODIOL 300 MG CAPSULE PO SCH ×2 (08:14→21:18)
[2017-09-24] MEDS: MYCOPHENOLATE SODIUM 180 MG TABLET.DR PO SCH ×2 (08:14→21:19)
[2017-09-24] MEDS: NYSTATIN (PYXIS) 500,000 UNIT/5 ML ORAL.SUSP PO SCH ×3 (08:14→17:33)
[2017-09-24] MEDS: LACTOBACILLUS RHAMNOSUS GG 1 EACH CAP.SPRINK GT SCH ×2 (08:14→17:33)
[2017-09-24] MEDS: MAGNESIUM OXIDE 400 MG TABLET PO SCH ×2 (08:14→21:19)
[2017-09-24] MEDS: TACROLIMUS ANHYDROUS 0.5 MG CAPSULE PO SCH ×2 (08:14→21:19)
[2017-09-24] MEDS: MULTI VITAMIN GT SCH (08:15)
[2017-09-24] MEDS: CEFEPIME 1 GM in IV D5W 50 ML IV SCH (08:15)
[2017-09-24] MEDS: VITS A AND D/WHITE PET/LANOLIN 5 GM PACKET TP SCH ×4 (08:17→21:20)
[2017-09-24] MEDS: predniSONE 5 MG TABLET PO SCH (08:17)
[2017-09-24 08:20] LABS: BAND % (MANUAL) 4 % (0.0-5.0); LYMPHOCYTES % (MANUAL) 4 % (16-48); MONOCYTES % (MANUAL) 3 % (0-11.0); NEUTROPHILS % (MANUAL) 89 (42-76)
[2017-09-24] MEDS: PROSOURCE / PROSTAT (PYXIS) 30 ML UDC GT SCH ×2 (08:24→17:35)
[2017-09-24] MEDS: ATORVASTATIN 10 MG TABLET PO SCH (08:31)
[2017-09-24] MEDS: GUAIFENESIN LA 600 MG TABLET.SA PO SCH ×2 (11:47→21:18)
[2017-09-24] MEDS: ALBUTEROL HALF STRENGTH 1.25 MG/3 ML VIAL.NEB NEB SCH ×5 (12:29→23:51)
[2017-09-24] MEDS: IPRATROPIUM NEB FS 0.5 MG/2.5 ML AMPUL.NEB NEB SCH ×4 (12:29→23:51)
[2017-09-24 12:36] LABS: ABG BASE EXCESS -5.1 mmol/L; ABG OXYGEN SATURATION 97.2 % (92.0-98.5); ABG PCO2 41.6 mmHg (35.0-45.0); ABG PH 7.315 (7.350-7.450); ABG PO2 103.3 mmHg (75.0-100.0); AaDO2 47.3 mmHg; COHb 0.2 % (0.5-1.5); MetHb 0.5 % (0.0-1.5); O2Hb 96.5 % (94.0-97.0); SITE, ABG Right Radial; VENT MODE, BG NASAL CANNULA
[2017-09-24] MEDS: MICAFUNGIN SODIUM 100 MG in IV NS 0.9% 100 ML IV SCH (17:33)
[2017-09-24] MEDS: IV 1/2NS 1000 ML 1,000 ML IV PRN (17:36)
[2017-09-24] MEDS ORDERED: CEFEPIME 1 GM in IV D5W 50 ML IV SCH (18:30)
[2017-09-24] MEDS ORDERED: NOREPINEPHRINE 8 MG in IV D5W 500 ML IV PRN (19:00)
[2017-09-24] MEDS: MEROPENEM 500 MG in IV NS 0.9% 50 ML IV SCH (20:28)
[2017-09-24] MEDS: CINACALCET HCL 30 MG TABLET PO SCH (21:18)
[2017-09-24] MEDS: LINEZOLID 600 MG TABLET PO SCH (21:19)
[2017-09-24] MEDS: METOCLOPRAMIDE HCL 10 MG/2 ML VIAL IV SCH (23:00)
[2017-09-25] VITALS (117 sets, daily range): BP systolic 58–175; BP diastolic 30–113
[2017-09-25 00:59] LABS: ABG BASE EXCESS -3.8 mmol/L; ABG OXYGEN SATURATION 93.5 % (92.0-98.5); ABG PH 7.334 (7.350-7.450); ABG PO2 72.3 mmHg (75.0-100.0); AaDO2 128.4 mmHg; COHb 0.3 % (0.5-1.5); MetHb 0.6 % (0.0-1.5); O2Hb 92.7 % (94.0-97.0); PEEP,BG 5 cm H2O; SITE, ABG Right Brachial
[2017-09-25] MEDS: FIBERSOURCE HN 1,000 ML BOTTLE GT PRN (02:15)
[2017-09-25] MEDS: IPRATROPIUM NEB FS 0.5 MG/2.5 ML AMPUL.NEB NEB SCH ×6 (03:14→23:36)
[2017-09-25] MEDS: ALBUTEROL HALF STRENGTH 1.25 MG/3 ML VIAL.NEB NEB SCH ×6 (03:14→23:36)
[2017-09-25] MEDS ORDERED: IV NS 0.9% 500 ML IV ONE (03:30)
[2017-09-25] MEDS: CHLORHEXIDINE GLUCONATE 15 ML UDC MM SCH ×3 (04:30→16:19)
[2017-09-25] MEDS: LIDOCAINE VISCOUS 2% UD 15 ML UDC MM SCH ×3 (04:34→20:05)
[2017-09-25] MEDS: METOCLOPRAMIDE HCL 10 MG/2 ML VIAL IV SCH ×2 (04:35→10:34)
[2017-09-25 04:38] LABS: HEMATOCRIT 26 % (33-45); HEMOGLOBIN 8.4 g/dL (11.5-14.8); LYMPHOCYTES # (AUTO) 0.2 /CMM (0.8-4.8); LYMPHOCYTES % (AUTO) 1.5 % (20.0-44.0); MEAN CORPUSCULAR HEMOGLOBIN 31 PG (26.0-33.0); MEAN CORPUSCULAR HGB CONC 33 g/dl (31.0-36.0); MEAN CORPUSCULAR VOLUME 93 fL (82-100); MONOCYTES # (AUTO) 0.1 /CMM (0.1-1.30); NEUTROPHILS # (AUTO) 14.5 /CMM (1.8-8.9); NEUTROPHILS % (AUTO) 97.5 % (43.0-81.0); RDW COEFFICIENT OF VARIATION 20.8 (11.5-15.0); RED BLOOD CELL COUNT(AUTO) 2.76 MIL/uL (4.0-5.2); WHITE BLOOD COUNT (AUTO) 14.9 K/uL (4.3-11.0)
[2017-09-25] MEDS: MEROPENEM 500 MG in IV NS 0.9% 50 ML IV SCH ×2 (04:48→16:19)
[2017-09-25 04:51] LABS: PLATELET COUNT (AUTO) 30 /CMM (150-450)
[2017-09-25 04:52] LABS: CALCIUM, SERUM 10.4 mg/dL (8.5-10.1); CREATININE 1.7 mg/dL (0.6-1.3); MAGNESIUM 2.8 mg/dL (1.8-2.4); PHOSPHORUS 2.4 mg/dL (2.5-4.9); POTASSIUM 4.1 mmol/L (3.5-5.1)
[2017-09-25 05:07] LABS: BAND % (MANUAL) 5 % (0.0-5.0); LYMPHOCYTES % (MANUAL) 2 % (16-48); MONOCYTES % (MANUAL) 2 % (0-11.0); NEUTROPHILS % (MANUAL) 91 (42-76)
[2017-09-25] MEDS: PROPOFOL 100 ML IV PRN ×2 (09:40→17:42)
[2017-09-25] MEDS: MAGNESIUM OXIDE 400 MG TABLET PO SCH ×2 (09:41→20:04)
[2017-09-25] MEDS: MYCOPHENOLATE SODIUM 180 MG TABLET.DR PO SCH ×2 (09:41→20:05)
[2017-09-25] MEDS: predniSONE 5 MG TABLET PO SCH (09:41)
[2017-09-25] MEDS: GUAIFENESIN LA 600 MG TABLET.SA PO SCH (09:41)
[2017-09-25] MEDS: ATORVASTATIN 10 MG TABLET PO SCH (09:41)
[2017-09-25] MEDS: CALCIUM CARB 250MG /VITAMIN D 1 UDTAB PO SCH (09:41)
[2017-09-25] MEDS: NYSTATIN (PYXIS) 500,000 UNIT/5 ML ORAL.SUSP PO SCH ×3 (09:42→16:19)
[2017-09-25] MEDS: LINEZOLID 600 MG TABLET PO SCH (09:42)
[2017-09-25] MEDS: LACTOBACILLUS RHAMNOSUS GG 1 EACH CAP.SPRINK GT SCH ×2 (09:42→16:19)
[2017-09-25] MEDS: MULTI VITAMIN GT SCH (09:42)
[2017-09-25] MEDS: VITS A AND D/WHITE PET/LANOLIN 5 GM PACKET TP SCH ×4 (09:43→20:06)
[2017-09-25] MEDS: PROSOURCE / PROSTAT (PYXIS) 30 ML UDC GT SCH ×2 (09:45→16:19)
[2017-09-25 10:00] LABS: ABG BASE EXCESS -3.6 mmol/L; ABG OXYGEN SATURATION 88.6 % (92.0-98.5); ABG PCO2 44.7 mmHg (35.0-45.0); ABG PH 7.318 (7.350-7.450); ABG PO2 56.2 mmHg (75.0-100.0); COHb 0.3 % (0.5-1.5); MetHb 0.7 % (0.0-1.5); O2Hb 87.7 % (94.0-97.0); SITE, ABG Right Radial
[2017-09-25] MEDS ORDERED: HYDROCORTISONE SOD SUCCINATE 100 MG/2 ML VIAL ONE (11:34)
[2017-09-25] MEDS: HYDROCORTISONE SOD SUCCINATE 100 MG/2 ML VIAL IV SCH ×2 (11:35→16:19)
[2017-09-25] MEDS ORDERED: IV NS 0.9% 1,000 ML IV STA (11:44)
[2017-09-25] MEDS ORDERED: PHENYLEPHRINE 80 MG in IV NS 0.9% 250 ML IV PRN (12:00)
[2017-09-25] MEDS: NOREPINEPHRINE 16 MG in IV D5W 500 ML IV PRN (12:03)
[2017-09-25 12:08] LABS: ABG BASE EXCESS -6.9 mmol/L; ABG OXYGEN SATURATION 97.8 % (92.0-98.5); ABG PCO2 51.4 mmHg (35.0-45.0); ABG PH 7.221 (7.350-7.450); ABG PO2 142.7 mmHg (75.0-100.0); AaDO2 446.3 mmHg; COHb 0.3 % (0.5-1.5); O2Hb 96.5 % (94.0-97.0); PEEP,BG 0 cm H2O; SITE, ABG Right Radial; VENT MODE, BG AC 14 500 90% +0; VT, ABG 500 mL
[2017-09-25] MEDS: TACROLIMUS ANHYDROUS 0.5 MG CAPSULE PO SCH ×2 (12:17→20:05)
[2017-09-25] MEDS: URSODIOL 300 MG CAPSULE PO SCH ×2 (12:17→20:04)
[2017-09-25] MEDS: IV D5/ 0.9% NACL 1,000 ML IV PRN (12:50)
[2017-09-25] MEDS ORDERED: FEE EMEERGENCY 1 MIN EA MC ONE (16:31)
[2017-09-25] MEDS ORDERED: ETOMIDATE 2 MG/ML VIAL IV ONE (16:31)
[2017-09-25] MEDS ORDERED: SUCCINYLCHOLINE CHLORIDE 20 MG/ML VIAL IV ONE (16:31)
[2017-09-25] MEDS ORDERED: NEUTRA PHOS 1 POWD.PACKET GT ONE (17:00)
[2017-09-25] MEDS: MICAFUNGIN SODIUM 100 MG in IV NS 0.9% 100 ML IV SCH (17:31)
[2017-09-25] MEDS: CINACALCET HCL 30 MG TABLET PO SCH (21:17)
[2017-09-25] MEDS: LINEZOLID RTU BAG 600 MG in PREMIX 1 EA IV SCH (21:17)
[2017-09-26] VITALS (91 sets, daily range): BP systolic 63–189; BP diastolic 25–97
[2017-09-26] MEDS: PROPOFOL 100 ML IV PRN ×2 (00:15→11:32)
[2017-09-26] MEDS: IV D5/ 0.9% NACL 1,000 ML IV PRN (01:30)
[2017-09-26] MEDS: ALBUTEROL HALF STRENGTH 1.25 MG/3 ML VIAL.NEB NEB SCH ×6 (03:56→23:39)
[2017-09-26] MEDS: IPRATROPIUM NEB FS 0.5 MG/2.5 ML AMPUL.NEB NEB SCH ×6 (03:56→23:39)
[2017-09-26 05:03] LABS: HEMATOCRIT 22 % (33-45); HEMOGLOBIN 7.5 g/dL (11.5-14.8); LYMPHOCYTES # (AUTO) 0.2 /CMM (0.8-4.8); LYMPHOCYTES % (AUTO) 0.9 % (20.0-44.0); MEAN CORPUSCULAR HEMOGLOBIN 32 PG (26.0-33.0); MEAN CORPUSCULAR HGB CONC 34 g/dl (31.0-36.0); MEAN CORPUSCULAR VOLUME 92 fL (82-100); MONOCYTES # (AUTO) 0.3 /CMM (0.1-1.30); MONOCYTES % (AUTO) 1.4 % (2.0-12.0); NEUTROPHILS # (AUTO) 20.1 /CMM (1.8-8.9); NEUTROPHILS % (AUTO) 97.7 % (43.0-81.0); RDW COEFFICIENT OF VARIATION 21.2 (11.5-15.0); RED BLOOD CELL COUNT(AUTO) 2.37 MIL/uL (4.0-5.2); WHITE BLOOD COUNT (AUTO) 20.5 K/uL (4.3-11.0)
[2017-09-26 05:16] LABS: CALCIUM, SERUM 8.9 mg/dL (8.5-10.1); CREATININE 1.8 mg/dL (0.6-1.3); MAGNESIUM 2.9 mg/dL (1.8-2.4); PHOSPHORUS 1.7 mg/dL (2.5-4.9); POTASSIUM 3.7 mmol/L (3.5-5.1); TOTAL PROTEIN, SERUM 2.8 g/dL (6.4-8.2)
[2017-09-26 05:28] LABS: TROPONIN I 0.077 ng/mL (0.00-0.056)
[2017-09-26 05:35] LABS: PLATELET COUNT (AUTO) 10 /CMM (150-450)
[2017-09-26 05:36] LABS: ALBUMIN 1.1 g/dL (3.4-5.0)
[2017-09-26 05:47] LABS: BAND % (MANUAL) 12 % (0.0-5.0); LYMPHOCYTES % (MANUAL) 1 % (16-48); MONOCYTES % (MANUAL) 1 % (0-11.0); NEUTROPHILS % (MANUAL) 86 (42-76)
[2017-09-26] MEDS: LIDOCAINE VISCOUS 2% UD 15 ML UDC MM SCH ×3 (05:47→20:50)
[2017-09-26] MEDS: MEROPENEM 500 MG in IV NS 0.9% 50 ML IV SCH ×2 (05:47→17:29)
[2017-09-26] MEDS: LINEZOLID RTU BAG 600 MG in PREMIX 1 EA IV SCH ×2 (09:08→20:44)
[2017-09-26] MEDS: PROSOURCE / PROSTAT (PYXIS) 30 ML UDC GT SCH ×2 (09:08→16:20)
[2017-09-26] MEDS: MAGNESIUM OXIDE 400 MG TABLET PO SCH ×2 (09:09→22:24)
[2017-09-26] MEDS: MULTI VITAMIN GT SCH (09:09)
[2017-09-26] MEDS: URSODIOL 300 MG CAPSULE PO SCH ×2 (09:09→20:45)
[2017-09-26] MEDS: MYCOPHENOLATE SODIUM 180 MG TABLET.DR PO SCH ×2 (09:09→20:48)
[2017-09-26] MEDS: CHLORHEXIDINE GLUCONATE 15 ML UDC MM SCH ×2 (09:09→16:20)
[2017-09-26] MEDS: HYDROCORTISONE SOD SUCCINATE 100 MG/2 ML VIAL IV SCH ×3 (09:09→16:20)
[2017-09-26] MEDS: TACROLIMUS ANHYDROUS 0.5 MG CAPSULE PO SCH ×2 (09:10→20:49)
[2017-09-26] MEDS: NYSTATIN (PYXIS) 500,000 UNIT/5 ML ORAL.SUSP PO SCH ×3 (09:10→16:20)
[2017-09-26] MEDS: CALCIUM CARB 250MG /VITAMIN D 1 UDTAB PO SCH (09:10)
[2017-09-26] MEDS: LACTOBACILLUS RHAMNOSUS GG 1 EACH CAP.SPRINK GT SCH ×2 (09:10→16:20)
[2017-09-26] MEDS: predniSONE 5 MG TABLET PO SCH (09:10)
[2017-09-26] MEDS: VITS A AND D/WHITE PET/LANOLIN 5 GM PACKET TP SCH ×4 (09:10→20:51)
[2017-09-26 10:37] LABS: ABG BASE EXCESS -5.4 mmol/L; ABG OXYGEN SATURATION 90.3 % (92.0-98.5); ABG PCO2 29.4 mmHg (35.0-45.0); ABG PH 7.415 (7.350-7.450); ABG PO2 59.6 mmHg (75.0-100.0); AaDO2 263.8 mmHg; COHb 0.3 % (0.5-1.5); O2Hb 89.1 % (94.0-97.0); PEEP,BG 0 cm H2O; SITE, ABG Left Radial; VT, ABG 550 mL
[2017-09-26] MEDS: ALBUMIN 25% 25 GM in PREMIX 1 EA IV SCH ×3 (12:20→22:37)
[2017-09-26] MEDS: NOREPINEPHRINE 16 MG in IV D5W 500 ML IV PRN (13:37)
[2017-09-26] MEDS: FOLIC ACID IV PRN (15:06)
[2017-09-26] MEDS: Thiamine 500 MG in IV D5W 50 ML IV SCH (15:06)
[2017-09-26] MEDS: NS 0.9% IV PRN (15:06)
[2017-09-26] MEDS: MVI ADULT IV PRN (15:06)
[2017-09-26] MEDS: MICAFUNGIN SODIUM 100 MG in IV NS 0.9% 100 ML IV SCH (16:21)
[2017-09-26] MEDS ORDERED: NEUTRA PHOS 1 POWD.PACKET NG ONE (17:30)
[2017-09-26 17:49] LABS: BILIRUBIN,DIRECT 0.7 mg/dL (0.0-0.2)
[2017-09-26] MEDS ORDERED: IV NS 0.9% 1,000 ML BAG IV PRN (19:00)
[2017-09-26] MEDS ORDERED: IV NS 0.9% 1,000 ML IV PRN (19:00)
[2017-09-26] MEDS ORDERED: IV NS 0.9% 1,000 ML BAG IV ONE (19:00)
[2017-09-26] MEDS: CINACALCET HCL 30 MG TABLET PO SCH (20:47)
[2017-09-27] VITALS (87 sets, daily range): BP systolic 89–143; BP diastolic 36–91
[2017-09-27] MEDS: PROPOFOL 100 ML IV PRN ×2 (00:32→11:53)
[2017-09-27] MEDS: MVI ADULT IV PRN ×2 (02:02→12:47)
[2017-09-27] MEDS: FOLIC ACID IV PRN ×2 (02:02→12:47)
[2017-09-27] MEDS: NS 0.9% IV PRN ×2 (02:02→12:47)
[2017-09-27] MEDS: IPRATROPIUM NEB FS 0.5 MG/2.5 ML AMPUL.NEB NEB SCH ×5 (04:16→19:23)
[2017-09-27] MEDS: ALBUTEROL HALF STRENGTH 1.25 MG/3 ML VIAL.NEB NEB SCH ×5 (04:16→19:23)
[2017-09-27 05:10] LABS: LYMPHOCYTES # (AUTO) 0.1 /CMM (0.8-4.8); LYMPHOCYTES % (AUTO) 0.7 % (20.0-44.0); MEAN CORPUSCULAR HEMOGLOBIN 31 PG (26.0-33.0); MEAN CORPUSCULAR HGB CONC 34 g/dl (31.0-36.0); MEAN CORPUSCULAR VOLUME 92 fL (82-100); MONOCYTES % (AUTO) 0.2 % (2.0-12.0); NEUTROPHILS # (AUTO) 14.3 /CMM (1.8-8.9); NEUTROPHILS % (AUTO) 99.1 % (43.0-81.0); RDW COEFFICIENT OF VARIATION 20.5 (11.5-15.0); WHITE BLOOD COUNT (AUTO) 14.5 K/uL (4.3-11.0)
[2017-09-27] MEDS: ALBUMIN 25% 25 GM in PREMIX 1 EA IV SCH (05:20)
[2017-09-27] MEDS: MEROPENEM 500 MG in IV NS 0.9% 50 ML IV SCH ×2 (05:20→16:19)
[2017-09-27] MEDS: LIDOCAINE VISCOUS 2% UD 15 ML UDC MM SCH ×3 (05:20→21:51)
[2017-09-27 05:24] LABS: POTASSIUM 3.7 mmol/L (3.5-5.1)
[2017-09-27 05:25] LABS: ALBUMIN 2.4 g/dL (3.4-5.0); BILIRUBIN,TOTAL 1.3 mg/dL (0.2-1.0); CALCIUM, SERUM 7.8 mg/dL (8.5-10.1); CREATININE 1.8 mg/dL (0.6-1.3); PHOSPHORUS 2.1 mg/dL (2.5-4.9); TOTAL PROTEIN, SERUM 3.5 g/dL (6.4-8.2)
[2017-09-27 05:27] LABS: RED BLOOD CELL COUNT(AUTO) 1.96 MIL/uL (4.0-5.2); TROPONIN I 0.189 ng/mL (0.00-0.056)
[2017-09-27 05:28] LABS: HEMATOCRIT 18 % (33-45); HEMOGLOBIN 6.1 g/dL (11.5-14.8); PLATELET COUNT (AUTO) 6 /CMM (150-450)
[2017-09-27 05:46] LABS: CREATININE, URINE 113.7 MG/DL (30.0-125.0)
[2017-09-27 05:55] LABS: BAND % (MANUAL) 6 % (0.0-5.0); LYMPHOCYTES % (MANUAL) 3 % (16-48); MONOCYTES % (MANUAL) 1 % (0-11.0); NEUTROPHILS % (MANUAL) 90 (42-76)
[2017-09-27] MEDS: CHLORHEXIDINE GLUCONATE 15 ML UDC MM SCH ×2 (08:31→16:19)
[2017-09-27] MEDS: LACTOBACILLUS RHAMNOSUS GG 1 EACH CAP.SPRINK GT SCH ×2 (08:31→16:23)
[2017-09-27] MEDS: NYSTATIN (PYXIS) 500,000 UNIT/5 ML ORAL.SUSP PO SCH ×3 (08:32→16:19)
[2017-09-27] MEDS: MAGNESIUM OXIDE 400 MG TABLET PO SCH ×2 (08:32→21:52)
[2017-09-27] MEDS: HYDROCORTISONE SOD SUCCINATE 100 MG/2 ML VIAL IV SCH ×3 (08:32→16:23)
[2017-09-27] MEDS: MYCOPHENOLATE SODIUM 180 MG TABLET.DR PO SCH ×2 (08:32→21:52)
[2017-09-27] MEDS: LINEZOLID RTU BAG 600 MG in PREMIX 1 EA IV SCH ×2 (08:32→21:51)
[2017-09-27] MEDS: CALCIUM CARB 250MG /VITAMIN D 1 UDTAB PO SCH (08:32)
[2017-09-27] MEDS: TACROLIMUS ANHYDROUS 0.5 MG CAPSULE PO SCH ×2 (08:32→21:53)
[2017-09-27] MEDS: predniSONE 5 MG TABLET PO SCH (08:32)
[2017-09-27] MEDS: PROSOURCE / PROSTAT (PYXIS) 30 ML UDC GT SCH ×2 (08:32→16:28)
[2017-09-27] MEDS: MULTI VITAMIN GT SCH (08:32)
[2017-09-27] MEDS: URSODIOL 300 MG CAPSULE PO SCH ×2 (08:32→21:51)
[2017-09-27] MEDS: VITS A AND D/WHITE PET/LANOLIN 5 GM PACKET TP SCH ×4 (08:34→21:53)
[2017-09-27 13:50] LABS: ABG BASE EXCESS -9.5 mmol/L; ABG OXYGEN SATURATION 98.6 % (92.0-98.5); ABG PCO2 35.3 mmHg (35.0-45.0); ABG PH 7.282 (7.350-7.450); ABG PO2 326.4 mmHg (75.0-100.0); AaDO2 351.3 mmHg; COHb 0.2 % (0.5-1.5); MetHb 1.1 % (0.0-1.5); O2Hb 97.3 % (94.0-97.0); PEEP,BG 0 cm H2O; SITE, ABG Right Radial
[2017-09-27] MEDS: NOREPINEPHRINE 16 MG in IV D5W 500 ML IV PRN (15:01)
[2017-09-27] MEDS: Thiamine 500 MG in IV D5W 50 ML IV SCH (15:27)
[2017-09-27] MEDS ORDERED: NEUTRA PHOS 1 POWD.PACKET NG ONE (15:30)
[2017-09-27] MEDS: MICAFUNGIN SODIUM 100 MG in IV NS 0.9% 100 ML IV SCH (17:22)
[2017-09-27] MEDS ORDERED: BUMETANIDE INJ 0.25 MG/ML VIAL IV ONE (19:30)
[2017-09-27] MEDS ORDERED: BUMETANIDE INJ 8 MG in IV NS 0.9% 48 ML IV ONE (20:00)
[2017-09-27] MEDS: CINACALCET HCL 30 MG TABLET PO SCH (22:00)
[2017-09-28] VITALS (92 sets, daily range): BP systolic 35–191; BP diastolic 16–106
[2017-09-28] MEDS: IPRATROPIUM NEB FS 0.5 MG/2.5 ML AMPUL.NEB NEB SCH ×6 (00:01→20:16)
[2017-09-28] MEDS: ALBUTEROL HALF STRENGTH 1.25 MG/3 ML VIAL.NEB NEB SCH ×6 (00:01→20:16)
[2017-09-28] MEDS: FOLIC ACID IV PRN ×2 (04:29→18:15)
[2017-09-28] MEDS: MVI ADULT IV PRN ×2 (04:29→18:15)
[2017-09-28] MEDS: NS 0.9% IV PRN ×2 (04:29→18:15)
[2017-09-28] MEDS: PROPOFOL 100 ML IV PRN ×2 (04:30→17:15)
[2017-09-28] MEDS: MEROPENEM 500 MG in IV NS 0.9% 50 ML IV SCH ×2 (04:33→17:14)
[2017-09-28] MEDS: LIDOCAINE VISCOUS 2% UD 15 ML UDC MM SCH ×3 (04:33→21:32)
[2017-09-28 05:36] LABS: HEMATOCRIT 27 % (33-45); LYMPHOCYTES # (AUTO) 0.1 /CMM (0.8-4.8); LYMPHOCYTES % (AUTO) 0.7 % (20.0-44.0); MEAN CORPUSCULAR HEMOGLOBIN 31 PG (26.0-33.0); MEAN CORPUSCULAR HGB CONC 34 g/dl (31.0-36.0); MEAN CORPUSCULAR VOLUME 90 fL (82-100); MONOCYTES % (AUTO) 0.3 % (2.0-12.0); NEUTROPHILS # (AUTO) 8.4 /CMM (1.8-8.9); PLATELET COUNT (AUTO) 58 /CMM (150-450); RDW COEFFICIENT OF VARIATION 16.5 (11.5-15.0); RED BLOOD CELL COUNT(AUTO) 2.95 MIL/uL (4.0-5.2); WHITE BLOOD COUNT (AUTO) 8.5 K/uL (4.3-11.0)
[2017-09-28 05:50] LABS: ALBUMIN 2.5 g/dL (3.4-5.0); BILIRUBIN,TOTAL 1.7 mg/dL (0.2-1.0); CALCIUM, SERUM 8.5 mg/dL (8.5-10.1); CREATININE 1.8 mg/dL (0.6-1.3); PHOSPHORUS 2.5 mg/dL (2.5-4.9); POTASSIUM 3.1 mmol/L (3.5-5.1); TOTAL PROTEIN, SERUM 4.5 g/dL (6.4-8.2)
[2017-09-28 06:00] LABS: INR 1.5 (0.87-1.13)
[2017-09-28 06:13] LABS: D-DIMER 19.28 mg/L(FEU (0.17-0.50)
[2017-09-28 06:28] LABS: BAND % (MANUAL) 8 % (0.0-5.0); METAMYELOCYTES % 1 % (0-0); MONOCYTES % (MANUAL) 1 % (0-11.0); NEUTROPHILS % (MANUAL) 90 (42-76)
[2017-09-28 08:20] LABS: ABG BASE EXCESS -12.3 mmol/L; ABG OXYGEN SATURATION 97.8 % (92.0-98.5); ABG PCO2 35.4 mmHg (35.0-45.0); ABG PH 7.226 (7.350-7.450); ABG PO2 155.7 mmHg (75.0-100.0); AaDO2 377.5 mmHg; COHb 0.3 % (0.5-1.5); MetHb 0.6 % (0.0-1.5); O2Hb 96.9 % (94.0-97.0); SITE, ABG Right Radial
[2017-09-28] MEDS: TACROLIMUS ANHYDROUS 0.5 MG CAPSULE PO SCH ×2 (08:55→21:31)
[2017-09-28] MEDS: URSODIOL 300 MG CAPSULE PO SCH ×2 (08:55→21:32)
[2017-09-28] MEDS: MYCOPHENOLATE SODIUM 180 MG TABLET.DR PO SCH ×2 (08:55→21:31)
[2017-09-28] MEDS: NYSTATIN (PYXIS) 500,000 UNIT/5 ML ORAL.SUSP PO SCH ×3 (08:55→17:14)
[2017-09-28] MEDS: LINEZOLID RTU BAG 600 MG in PREMIX 1 EA IV SCH ×2 (08:55→21:30)
[2017-09-28] MEDS: CHLORHEXIDINE GLUCONATE 15 ML UDC MM SCH ×2 (08:55→17:14)
[2017-09-28] MEDS: MULTI VITAMIN GT SCH (08:55)
[2017-09-28] MEDS: LACTOBACILLUS RHAMNOSUS GG 1 EACH CAP.SPRINK GT SCH ×2 (08:56→17:14)
[2017-09-28] MEDS: HYDROCORTISONE SOD SUCCINATE 100 MG/2 ML VIAL IV SCH ×3 (08:56→17:14)
[2017-09-28] MEDS: VITS A AND D/WHITE PET/LANOLIN 5 GM PACKET TP SCH ×4 (08:56→23:49)
[2017-09-28] MEDS: MAGNESIUM OXIDE 400 MG TABLET PO SCH ×2 (08:56→21:31)
[2017-09-28] MEDS: CALCIUM CARB 250MG /VITAMIN D 1 UDTAB PO SCH (08:56)
[2017-09-28] MEDS: predniSONE 5 MG TABLET PO SCH (08:56)
[2017-09-28] MEDS ORDERED: FUROSEMIDE 40 MG/4 ML VIAL IV ONE (12:30)
[2017-09-28] MEDS ORDERED: POTASSIUM CHLORIDE 10 MEQ TABLET.SA PO SCH (13:00)
[2017-09-28] MEDS ORDERED: POTASSIUM CHLORIDE 20 MEQ POWDER PACKET PO SCH (13:00)
[2017-09-28] MEDS: PHYTONADIONE INJ 10 MG/1 ML AMPUL SQ SCH (13:43)
[2017-09-28] MEDS: PANTOPRAZOLE 40 MG VIAL IV SCH (13:43)
[2017-09-28] MEDS: Thiamine 500 MG in IV D5W 50 ML IV SCH (14:55)
[2017-09-28] MEDS ORDERED: Sodium Bicarbonate 100 MEQ in IV D5W 1,000 ML IV PRN (15:30)
[2017-09-28 17:49] LABS: INR 1.3 (0.87-1.13)
[2017-09-28] MEDS: MICAFUNGIN SODIUM 100 MG in IV NS 0.9% 100 ML IV SCH (18:17)
[2017-09-28] MEDS: NOREPINEPHRINE 16 MG in IV D5W 500 ML IV PRN (18:38)
[2017-09-28 19:23] LABS: *TACROLIMUS (FK506) 9.5 ng/mL (2.0-20.0)
[2017-09-28] MEDS: CINACALCET HCL 30 MG TABLET PO SCH (21:32)
[2017-09-29] VITALS (88 sets, daily range): BP systolic 68–151; BP diastolic 33–86
[2017-09-29] MEDS: IPRATROPIUM NEB FS 0.5 MG/2.5 ML AMPUL.NEB NEB SCH ×6 (00:07→20:25)
[2017-09-29] MEDS: ALBUTEROL HALF STRENGTH 1.25 MG/3 ML VIAL.NEB NEB SCH ×6 (00:07→20:25)
[2017-09-29] MEDS: PROPOFOL 100 ML IV PRN ×2 (02:51→11:27)
[2017-09-29] MEDS: MEROPENEM 500 MG in IV NS 0.9% 50 ML IV SCH ×2 (04:57→17:24)
[2017-09-29] MEDS: LIDOCAINE VISCOUS 2% UD 15 ML UDC MM SCH ×3 (04:58→20:38)
[2017-09-29 05:10] LABS: CALCIUM, SERUM 8.1 mg/dL (8.5-10.1); CREATININE 1.9 mg/dL (0.6-1.3); POTASSIUM 4.4 mmol/L (3.5-5.1)
[2017-09-29 05:27] LABS: INR 1.41 (0.87-1.13)
[2017-09-29 06:37] LABS: D-DIMER 29.04 mg/L(FEU (0.17-0.50)
[2017-09-29] MEDS: NS 0.9% IV PRN ×2 (07:41→22:13)
[2017-09-29] MEDS: FOLIC ACID IV PRN ×2 (07:41→22:13)
[2017-09-29] MEDS: MVI ADULT IV PRN ×2 (07:41→22:13)
[2017-09-29] MEDS: TACROLIMUS ANHYDROUS 0.5 MG CAPSULE PO SCH ×2 (08:41→20:45)
[2017-09-29] MEDS: URSODIOL 300 MG CAPSULE PO SCH ×2 (08:42→20:45)
[2017-09-29] MEDS: MULTI VITAMIN GT SCH (08:42)
[2017-09-29] MEDS: CHLORHEXIDINE GLUCONATE 15 ML UDC MM SCH ×2 (08:42→17:24)
[2017-09-29] MEDS: MYCOPHENOLATE SODIUM 180 MG TABLET.DR PO SCH (08:42)
[2017-09-29] MEDS: LACTOBACILLUS RHAMNOSUS GG 1 EACH CAP.SPRINK GT SCH ×2 (08:42→17:24)
[2017-09-29] MEDS: predniSONE 5 MG TABLET PO SCH (08:42)
[2017-09-29] MEDS: NYSTATIN (PYXIS) 500,000 UNIT/5 ML ORAL.SUSP PO SCH ×3 (08:42→17:24)
[2017-09-29] MEDS: PHYTONADIONE INJ 10 MG/1 ML AMPUL SQ SCH (08:42)
[2017-09-29] MEDS: HYDROCORTISONE SOD SUCCINATE 100 MG/2 ML VIAL IV SCH ×3 (08:43→17:24)
[2017-09-29] MEDS: MAGNESIUM OXIDE 400 MG TABLET PO SCH ×2 (08:43→20:44)
[2017-09-29] MEDS: VITS A AND D/WHITE PET/LANOLIN 5 GM PACKET TP SCH ×4 (08:43→21:15)
[2017-09-29] MEDS: CALCIUM CARB 250MG /VITAMIN D 1 UDTAB PO SCH (08:43)
[2017-09-29 08:48] LABS: EOSINOPHILS # (AUTO) 0.1 /CMM (0.0-0.7); EOSINOPHILS % (AUTO) 0.1 % (0.0-6.0); HEMATOCRIT 27 % (33-45); HEMOGLOBIN 9.1 g/dL (11.5-14.8); LYMPHOCYTES # (AUTO) 0.6 /CMM (0.8-4.8); MEAN CORPUSCULAR HEMOGLOBIN 31 PG (26.0-33.0); MEAN CORPUSCULAR HGB CONC 33 g/dl (31.0-36.0); MEAN CORPUSCULAR VOLUME 92 fL (82-100); MONOCYTES # (AUTO) 0.4 /CMM (0.1-1.30); MONOCYTES % (AUTO) 0.6 % (2.0-12.0); NEUTROPHILS # (AUTO) 58.2 /CMM (1.8-8.9); NEUTROPHILS % (AUTO) 98.3 % (43.0-81.0); RDW COEFFICIENT OF VARIATION 17.8 (11.5-15.0); RED BLOOD CELL COUNT(AUTO) 2.97 MIL/uL (4.0-5.2)
[2017-09-29 08:53] LABS: PLATELET COUNT (AUTO) 11 /CMM (150-450); WHITE BLOOD COUNT (AUTO) 59.3 K/uL (4.3-11.0)
[2017-09-29] MEDS ORDERED: LINEZOLID 600 MG TABLET GT SCH (09:00)
[2017-09-29 09:08] LABS: ABG BASE EXCESS -9.3 mmol/L; ABG OXYGEN SATURATION 97.4 % (92.0-98.5); ABG PH 7.332 (7.350-7.450); ABG PO2 108.1 mmHg (75.0-100.0); AaDO2 430.8 mmHg; COHb 0.3 % (0.5-1.5); MetHb 0.7 % (0.0-1.5); O2Hb 96.4 % (94.0-97.0); PEEP,BG 5 cm H2O; SITE, ABG Right Radial; VT, ABG 600 mL
[2017-09-29 10:20] LABS: BAND % (MANUAL) 16 % (0.0-5.0); LYMPHOCYTES % (MANUAL) 1 % (16-48); MYELOCYTES % 3 % (0-0); NEUTROPHILS % (MANUAL) 80 (42-76)
[2017-09-29] MEDS: NOREPINEPHRINE 16 MG in IV D5W 500 ML IV PRN (11:26)
[2017-09-29] MEDS: PANTOPRAZOLE 40 MG VIAL IV SCH ×2 (12:16→17:24)
[2017-09-29] MEDS: Thiamine 500 MG in IV D5W 50 ML IV SCH (14:50)
[2017-09-29] MEDS: MICAFUNGIN SODIUM 100 MG in IV NS 0.9% 100 ML IV SCH (18:02)
[2017-09-29] MEDS: LINEZOLID RTU BAG 600 MG in PREMIX 1 EA IV SCH (20:31)
[2017-09-29] MEDS ORDERED: MYCOPHENOLATE SODIUM 180 MG TABLET.DR PO SCH (21:00)
[2017-09-29] MEDS: CINACALCET HCL 30 MG TABLET PO SCH (21:14)
[2017-09-30] VITALS (73 sets, daily range): BP systolic 49–139; BP diastolic 17–88
[2017-09-30] MEDS: IPRATROPIUM NEB FS 0.5 MG/2.5 ML AMPUL.NEB NEB SCH ×5 (00:27→15:57)
[2017-09-30] MEDS: ALBUTEROL HALF STRENGTH 1.25 MG/3 ML VIAL.NEB NEB SCH ×5 (00:27→15:57)
[2017-09-30] MEDS: NOREPINEPHRINE 16 MG in IV D5W 500 ML IV PRN ×2 (02:29→11:34)
[2017-09-30] MEDS: LIDOCAINE VISCOUS 2% UD 15 ML UDC MM SCH ×2 (05:14→12:40)
[2017-09-30] MEDS: MEROPENEM 500 MG in IV NS 0.9% 50 ML IV SCH (05:14)
[2017-09-30 05:37] LABS: HEMATOCRIT 26 % (33-45); HEMOGLOBIN 8.7 g/dL (11.5-14.8); LYMPHOCYTES # (AUTO) 0.2 /CMM (0.8-4.8); LYMPHOCYTES % (AUTO) 0.4 % (20.0-44.0); MEAN CORPUSCULAR HEMOGLOBIN 30 PG (26.0-33.0); MEAN CORPUSCULAR HGB CONC 33 g/dl (31.0-36.0); MEAN CORPUSCULAR VOLUME 91 fL (82-100); NEUTROPHILS # (AUTO) 57.2 /CMM (1.8-8.9); NEUTROPHILS % (AUTO) 99.6 % (43.0-81.0); RDW COEFFICIENT OF VARIATION 18.2 (11.5-15.0); RED BLOOD CELL COUNT(AUTO) 2.86 MIL/uL (4.0-5.2)
[2017-09-30 05:53] LABS: ALBUMIN 1.6 g/dL (3.4-5.0); BILIRUBIN,TOTAL 1.6 mg/dL (0.2-1.0); CALCIUM, SERUM 7.5 mg/dL (8.5-10.1); MAGNESIUM 3.4 mg/dL (1.8-2.4); PHOSPHORUS 3.5 mg/dL (2.5-4.9); POTASSIUM 4.9 mmol/L (3.5-5.1); TOTAL PROTEIN, SERUM 3.5 g/dL (6.4-8.2)
[2017-09-30 06:12] LABS: PLATELET COUNT (AUTO) 3 /CMM (150-450); WHITE BLOOD COUNT (AUTO) 57.4 K/uL (4.3-11.0)
[2017-09-30 07:25] LABS: BAND % (MANUAL) 9 % (0.0-5.0); LYMPHOCYTES % (MANUAL) 1 % (16-48); MONOCYTES % (MANUAL) 1 % (0-11.0); NEUTROPHILS % (MANUAL) 89 (42-76)
[2017-09-30] MEDS: CALCIUM CARB 250MG /VITAMIN D 1 UDTAB PO SCH (08:37)
[2017-09-30] MEDS: NYSTATIN (PYXIS) 500,000 UNIT/5 ML ORAL.SUSP PO SCH ×2 (08:37→12:40)
[2017-09-30] MEDS: CHLORHEXIDINE GLUCONATE 15 ML UDC MM SCH (08:37)
[2017-09-30] MEDS: VITS A AND D/WHITE PET/LANOLIN 5 GM PACKET TP SCH ×2 (08:38→12:44)
[2017-09-30] MEDS: predniSONE 5 MG TABLET PO SCH (08:38)
[2017-09-30] MEDS: URSODIOL 300 MG CAPSULE PO SCH (08:38)
[2017-09-30] MEDS: MAGNESIUM OXIDE 400 MG TABLET PO SCH (08:38)
[2017-09-30] MEDS: LACTOBACILLUS RHAMNOSUS GG 1 EACH CAP.SPRINK GT SCH (08:38)
[2017-09-30] MEDS: TACROLIMUS ANHYDROUS 0.5 MG CAPSULE PO SCH (08:38)
[2017-09-30] MEDS: PHYTONADIONE INJ 10 MG/1 ML AMPUL SQ SCH (08:38)
[2017-09-30] MEDS: HYDROCORTISONE SOD SUCCINATE 100 MG/2 ML VIAL IV SCH ×2 (08:38→12:40)
[2017-09-30] MEDS: MULTI VITAMIN GT SCH (08:43)
[2017-09-30] MEDS: LINEZOLID RTU BAG 600 MG in PREMIX 1 EA IV SCH (08:44)
[2017-09-30] MEDS: PANTOPRAZOLE 40 MG VIAL IV SCH (09:19)
[2017-09-30] MEDS ORDERED: CLINDAMYCIN IV RTU IN D5W 900 MG/50 ML PIGGYBACK IV SCH (12:30)
[2017-09-30] MEDS ORDERED: CLINDAMYCIN 600 MG in IV D5W 50 ML IV SCH (13:50)
[2017-09-30] MEDS: Thiamine 500 MG in IV D5W 50 ML IV SCH (14:10)
[2017-10-01 12:13] LABS: *TACROLIMUS (FK506) 22.3 ng/mL (2.0-20.0)
[2017-10-02 21:09] LABS: *TACROLIMUS (FK506) 20.5 ng/mL (2.0-20.0)
== END 2017-10-01 01:01 | disposition expired | DRG 207 ==
LOC: ER 11:42 → TELE 14:32 → MED 09-21 10:25 → ICU 09-24 15:11
PROVIDERS: ADMIT Nurse Practitioner Acute Care; ATTEND Nurse Practitioner Acute Care
PROC: 0DH63UZ Insertion of Feeding Device into Stomach, Percutaneous Approach (ICD-10-PCS; 2017-09-21)
PROC: 05H533Z Insertion of Infusion Device into Right Subclavian Vein, Percutaneous Approach (ICD-10-PCS; 2017-09-23)
PROC: B546ZZA Ultrasonography of Right Subclavian Vein, Guidance (ICD-10-PCS; 2017-09-23)
PROC: 5A09357 Assistance with Respiratory Ventilation, Less than 24 Consecutive Hours, Continuous Positive Airway Pressure (ICD-10-PCS; 2017-09-24)
PROC: 5A1955Z Respiratory Ventilation, Greater than 96 Consecutive Hours (ICD-10-PCS; principal; 2017-09-25)
PROC: 0BH17EZ Insertion of Endotracheal Airway into Trachea, Via Natural or Artificial Opening (ICD-10-PCS; 2017-09-25)
PROC: 05HM33Z Insertion of Infusion Device into Right Internal Jugular Vein, Percutaneous Approach (ICD-10-PCS; 2017-09-25)
PROC: B543ZZA Ultrasonography of Right Jugular Veins, Guidance (ICD-10-PCS; 2017-09-25)
PROC: 30233R1 Transfusion of Nonautologous Platelets into Peripheral Vein, Percutaneous Approach (ICD-10-PCS; 2017-09-27)
PROC: 30233N1 Transfusion of Nonautologous Red Blood Cells into Peripheral Vein, Percutaneous Approach (ICD-10-PCS; 2017-09-27)
PROC: 30233K1 Transfusion of Nonautologous Frozen Plasma into Peripheral Vein, Percutaneous Approach (ICD-10-PCS; 2017-09-27)
DX: J15.9 Unspecified bacterial pneumonia (principal); N17.0 Acute kidney failure with tubular necrosis; I21.A1 Myocardial infarction type 2; D65 Disseminated intravascular coagulation [defibrination syndrome]; E43 Unspecified severe protein-calorie malnutrition; A41.9 Sepsis, unspecified organism; J81.1 Chronic pulmonary edema; R65.21 Severe sepsis with septic shock; G93.40 Encephalopathy, unspecified; J96.01 Acute respiratory failure with hypoxia; J96.02 Acute respiratory failure with hypercapnia; K85.90 Acute pancreatitis without necrosis or infection, unspecified; E87.2 Acidosis; B37.0 Candidal stomatitis; B37.81 Candidal esophagitis; T86.12 Kidney transplant failure; R18.8 Other ascites; E27.40 Unspecified adrenocortical insufficiency; E87.0 Hyperosmolality and hypernatremia; Z51.5 Encounter for palliative care; D69.6 Thrombocytopenia, unspecified; E86.0 Dehydration; D63.8 Anemia in other chronic diseases classified elsewhere; D72.823 Leukemoid reaction; E88.09 Other disorders of plasma-protein metabolism, not elsewhere classified; E78.5 Hyperlipidemia, unspecified; K74.60 Unspecified cirrhosis of liver; Z87.01 Personal history of pneumonia (recurrent); Z66 Do not resuscitate; R62.7 Adult failure to thrive; K81.9 Cholecystitis, unspecified; I25.10 Atherosclerotic heart disease of native coronary artery without angina pectoris; R63.0 Anorexia; E87.8 Other disorders of electrolyte and fluid balance, not elsewhere classified; E80.6 Other disorders of bilirubin metabolism; Z86.19 Personal history of other infectious and parasitic diseases; L98.8 Other specified disorders of the skin and subcutaneous tissue; Z68.32 Body mass index [BMI] 32.0-32.9, adult; D47.3 Essential (hemorrhagic) thrombocythemia; Z79.899 Other long term (current) drug therapy; E53.9 Vitamin B deficiency, unspecified; K13.0 Diseases of lips; Y83.8 Other surgical procedures as the cause of abnormal reaction of the patient, or of later complication, without mention of misadventure at the time of the procedure; Y92.009 Unspecified place in unspecified non-institutional (private) residence as the place of occurrence of the external cause; T45.1X5A Adverse effect of antineoplastic and immunosuppressive drugs, initial encounter; E87.70 Fluid overload, unspecified; M81.0 Age-related osteoporosis without current pathological fracture
CPT/HCPCS: 31720; 36415; 36569; 36600; 70551-TC; 71045-TC; 76642-TC; 76856-TC; 80048-TC; 80053-TC; 80061-TC; 80197; 82248-TC; 82570-TC; 82803-TC; 82962-TC; 83090; 83540-TC; 83605-TC; 83615-TC; 83690-TC; 83735-TC; 84100-TC; 84300-TC; 84443-TC; 84484-TC; 85025-TC; 85045-TC; 85378-TC; 85385-TC; 85396; 85610-TC; 85652-TC; 85730-TC; 86140-TC; 86850-TC; 86921-TC; 87040-TC; 87070-TC; 87081-TC; 87086-TC; 87281; 94002-TC; 94003-TC; 94760-TC; 94799-TC; A4216; A4606; A6253; A6402; A6403; C1751; C9113; J0330; J0690; J0692; J0696; J1720; J1940; J2020; J2185; J2248; J2370; J2543; J2704; J3370; J3411; J3430; J3475; J3490; J7030; J7040; J7042; J7050; J7060; J7070; J7507; J7512; J7518; J8597; P9016-BL; P9017-BL; P9034-BL; P9047; Z7610